=== PATIENT | male | born 1960 | race Caucasian/White ===

== ENCOUNTER 2023-10-10 08:24 | Outpatient (AMB) | payer MEDICARE, OTHER, SELFPAY ==
--- NOTE | 2023-10-10 08:30 | MHC.OFFWIV ---
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 Intake Note: pt is here for hearing aid piece stuck in ear Allergies phenytoin [From Dilantin] Allergy (Mild, Verified 10/10/23 08:51) Rash Medication List - Last Reconciled 10/10/23 by Presley Acevedo MD amlodipine 5 mg PO DAILY aspirin 81 mg PO DAILY atorvastatin 80 mg PO DAILY calcipotriene-betamethasone 0.005-0.064 % (Enstilar) topical carvedilol 12.5 mg PO BID isosorbide mononitrate ER 30 mg PO DAILY tamsulosin 0.4 mg PO DAILY Do you need a note to return to daycare/school/sports/work: No HPI 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 He is not able to hear from the right ear for the past month. Lost his hearing aid. Went to audiology over the weekend who saw a foreign body and sent him over for removal. Physical Exam Vital Signs: Last Vital Signs Temp 97.8 F 10/10/23 08:31 Pulse 66 10/10/23 08:31 BP 128/72 10/10/23 08:31 Pulse Ox 97 10/10/23 08:31 BMI result Body Mass Index 28.5 HEENT Other: Right ear: black colored object jammed in the ear canal. TM not visualized. Assessment & Plan Assessment & Plan (1) Foreign body in ear: Code(s): T16.9XXA - Foreign body in ear, unspecified ear, initial encounter Plan: Using a probe with a light, the foreign body was removed in its entirety. It was a plastic piece of his hearing aid. Pt tolerated the procedure well. Minimal bleeding Orders: Orders AMB Removal of foreign body Today T16.9XXA - Foreign body in ear, unspecified ear, initial encounter Coding Level of Care Code Est Pt Level 3 (68496) Diagnoses Foreign body in ear T16.9XXA Time Spent (min) 10 Comment 10703 CPT code
[2023-10-10 08:31] VITALS: BP 128/72; PULSE 66; TEMP 36.6; O2SAT 97; BMI 28.5
== END 2023-10-10 09:31 | disposition home or self-care (01) ==
PROVIDERS: Visit Provider Internal Medicine
DX: T16.1XXA Foreign body in right ear, initial encounter (principal)
CPT/HCPCS: 69200; 99213

== ENCOUNTER 2023-11-25 08:38 | Outpatient (AMB) | payer MEDICARE, OTHER, SELFPAY ==
--- NOTE | 2023-11-25 09:14 | AM.OFFWIN_ITS ---
Intake Vital Signs 11/25/23 09:16 Height 5 ft 7 in Weight 182 lb BMI 28.5 BP 122/76 Blood Pressure Location Lt brachial Position Sitting Pulse 80 Pulse Source Pulse Oximeter Temp 97.8 F Temp Source Oral Pulse Oximetry (%) 98 Intake Visit Reasons: EP Sliver ~ finger Intake Note: pt is here for sliver in finger on left ring finger Patient Tobacco Use Status: Former Tobacco user Allergies phenytoin [From Dilantin] Allergy (Mild, Verified 11/25/23 09:16) Rash HPI HPI Comments History of Present Illness Details Patient is a 63-year-old male who says he got a splinter in his left ring finger yesterday while brushing something off of his front porch. He states his friend raymond is made of wood and it was a wooden splinter. He states he was able to remove it immediately and thinks he got the entire piece but he has not sure because it became painful over night and is more painful this morning. He also states it is more red than his other fingers, he did apply 1st aid antibiotic cream. He states his last tetanus was 3 years ago. He is left- handed. [facility] Social History Patient Tobacco Use Status: Former Tobacco user Review of Systems Const All systems reviewed & are unremarkable except as noted in HPI and below Physical Exam Vital Signs: Last Vital Signs Temp 97.8 F 11/25/23 09:16 Pulse 80 11/25/23 09:16 BP 122/76 11/25/23 09:16 Pulse Ox 98 11/25/23 09:16 BMI result Body Mass Index 28.5 Const General: cooperative, healthy appearing, comfortable, no acute distress and well developed Orientation/consciousness: patient oriented x3 Limitations: no limitations Eyes General: appearance normal, both eyes and all related structures Resp Effort & Inspection: normal respiratory effort and able to speak in complete sentences Skin General skin exam: no rashes or lesions noted Neuro General: patient oriented x3 Extrem Left upper extremity: hand Details: neurosensory exam normal, tendon exam normal, normal ROM of fingers, no swelling and laceration (Superficial 0.5 cm laceration, erythema and slight tenderness, no FB noted) 4th digit palmar aspect distal ; no unusual warmth, no abrasions, no ecchymosis and no foreign bodies Assessment & Plan Assessment & Plan (1) Foreign body hand-infection: Code(s): S60.559A - Superficial foreign body of unspecified hand, initial encounter; L08.9 - Local infection of the skin and subcutaneous tissue, unspecified Plan: Difficult to ascertain if there is a foreign body retained because I could not palpate 1 or visualize 1. As he is left-handed, I did not want to cause any structural damage to the finger. We will get an x-ray to rule out foreign body retention, he states his tetanus is up-to-date. I will also send doxycycline for 5 days and told him to follow up with his primary care doctor if it does not improve. Plan see above Orders: Orders XR hand LT min 3V Today L08.9 - Local infection of the skin and subcutaneous tissue, unspecified, S60.559A - Superficial foreign body of unspecified hand, initial encounter Medications: New doxycycline hyclate take with food 100 mg PO BID 10 tabs 0RF Coding Level of Care Code Est Pt Level 4 (71481) Diagnoses Foreign body hand-infection S60.559A; L08.9
[2023-11-25 09:16] VITALS: BP 122/76; PULSE 80; TEMP 36.6; O2SAT 98; BMI 28.5
== END 2023-11-25 10:07 | disposition home or self-care (01) ==
PROVIDERS: Visit Provider Physician Assistant
DX: S60.559A Superficial foreign body of unspecified hand, initial encounter (principal); L08.9 Local infection of the skin and subcutaneous tissue, unspecified
CPT/HCPCS: 99214

== ENCOUNTER 2023-11-25 09:29 | Outpatient (REF) | payer MEDICARE, OTHER, SELFPAY ==
--- NOTE | ~2023-11-25 | XR_ITS ---
EXAMINATION: XR HAND, LEFT CLINICAL INFORMATION: Superficial foreign body. COMPARISON: None available. TECHNIQUE: PA, lateral, and oblique views of the left hand. FINDINGS: Alignment is anatomic. Joint spaces are maintained. No displaced fracture or dislocation. No evidence of retained radiopaque foreign body. No focal radiographic soft tissue swelling. XR/XR hand LT min 3V IMPRESSION: No retained radiopaque foreign body seen.
== END 2023-11-25 09:30 | disposition home or self-care (01) ==
LOC: HO.HMGCX 09:29
PROVIDERS: Visit Provider Physician Assistant
DX: S60.552A Superficial foreign body of left hand, initial encounter (principal); L08.9 Local infection of the skin and subcutaneous tissue, unspecified
CPT/HCPCS: 73130

== ENCOUNTER 2024-08-07 09:04 | Outpatient (AMB) | payer MEDICARE, OTHER, SELFPAY ==
[2024-08-07 09:28] VITALS: BP 110/70; PULSE 64; O2SAT 98
--- NOTE | 2024-08-07 09:28 | AM.OFFWIN_ITS ---
Intake Vital Signs 08/07/24 09:28 Weight 184 lb BP 110/70 Blood Pressure Location Lt brachial Position Sitting Pulse 64 Pulse Source Pulse Oximeter Pulse Oximetry (%) 98 Oxygen Delivery Method Room Air Intake Visit Reasons: EP palate mouth pain & sensitive teeth Intake Note: Patient here because he burn the roof of his mouth on tuesday and seems to have worsened. Patient Tobacco Use Status: Former Tobacco user Allergies phenytoin [From Dilantin] Allergy (Mild, Verified 08/07/24 09:28) Rash Do you need a note to return to daycare/school/sports/work: No HPI HPI Comments History of Present Illness Details History of Present Illness - The patient is a 64-year-old male pres enting with a mucosal burn of the palate. - Four days prior, the patient sustained an oral mucosal burn while eating soup, causing current symptoms. - Symptoms exhibit as a worsening sensit ivity and pain in the upper palate, alongside left-side tooth sensitivity. - Pain intensity is noteworthy, with noc turnal disruptions reported. - The patient denies experiencing any sy stemic symptoms such as fever or heart racing. - The patient has applied warm salt wate r rinses, which offer short-term sympt omatic relief. - Past medical history of significance i ncludes a previous smoking history, although he has not recently smoked. Reflective dietary habits introduced potential irritants. - The patient denies diabetes, which cou ld impact healing. Physical Exam General: Cooperative, healthy appearing, comfortable, no acute distress and well developed Orientation: Patient oriented x3 Limitations: No limitations Head: Normal to inspection Ears: Hearing grossly normal bilaterally Nose: Normal external nose present Mouth: roof of mouth, left side has 1.5cm oval area of light brown, no ulcers, no vesicles, no erythema or white coated areas noted Face and sinus: Normal facial exam Eyes: Appearance normal, both eyes and all related structures Neck: Normal visual inspection and Yes full ROM Respiratory: Normal respiratory effort and able to speak in complete sentences. Skin: No rashes or lesions noted Neuro: Patient oriented x3 Extremities: Normal to inspection [facility] Social History Patient Tobacco Use Status: Former Tobacco user Review of Systems Const All systems reviewed & are unremarkable except as noted in HPI and below Physical Exam Vital Signs: Last Vital Signs Pulse 64 08/07/24 09:28 BP 110/70 08/07/24 09:28 Pulse Ox 98 08/07/24 09:28 Oxygen Delivery Method Room Air 08/07/24 09:28 Assessment & Plan Assessment & Plan (1) Burn of hard palate: Code(s): T28.0XXA - Burn of mouth and pharynx, initial encounter Plan: The patient presents with a mucosal burn of the palate related to hot food consumption. Management includes the use of a Magic Mouthwash, advising administration every six to eight hours for one week or until symptoms resolve. Dietary adjustments focusing on softness and neutrality, avoiding irritating foods, are also recommended. Should symptoms escalate or systemic signs develop, such as fever, reevaluation for potential antibiotic treatment is advised. The patient is recommended to follow up with their primary care provider in one week for reassessment and confirmation of healing. Patient was informed and verbally consented to the use of an ambient scribe for clinic note documentation during this visit. Medications: New Magic Mouthwash Diphen/Lido/Antacid 1:1:1 Lidocaine Viscous 2 % 80mL; diphenhydramine 12.5 mg/5 mL 80mL; aluminum-mag hydrox-simeth [id number]/5mL 80mL 5 mL PO Q6-8H 240 mL 0RF Coding Level of Care Code New Pt Level 3 (93068) Diagnoses Burn of hard palate T28.0XXA
--- OUTSIDE RECORDS SUMMARY | 2024-08-07 10:03 | XMS_ITS | Clinical Summary ---
Author Organization [facility] Address [address] [place] [address] Care Team Providers Care Clinical Services Specialist Name Role Phone Daria Cruz DO Primary Care Pro vider Allergies Active Allergy Reactions Criticality Noted Date Comments Latex 06/09/2022 Other Reaction(s): Rash/Dermatitis Phenytoin Sodium 09/13/2005 Medications aspirin 81 mg EC tablet Take 1 tablet (81 mg total) by mouth 1 (one) time each day. Active atorvastatin (LIPITOR) 80 mg tablet Take 1 tablet (80 mg total) by mouth 1 (one) time each day. 2 Active ranolazine (RANEXA) 1,000 mg 12 hr tablet Take 1 tablet (1,000 mg total) by mouth 2 (two) times a day. 4 Active tamsulosin (FLOMAX) 0.4 mg 24 hr capsule TAKE 1 CAPSULE BY MOUTH EVERY DAY 30 MINUTES AFTER SAME MEAL 2 Active amLODIPine (NORVASC) 5 mg tabletIndicati ons:Atheroscle rotic heart disease of [place] coronary artery with other forms of angina pectoris (CMS/HCC) TAKE 1 TABLET BY MOUTH EVERY DAY 90 tablet 1 5 Active amLODIPine (NORVASC) 5 mg tablet Take 1 tablet (5 mg total) by mouth 1 (one) time each day. 10/08/07/18/19 25 Discontinued Active Problems Problem Noted Date Diagnosed Date Palpitations 09/01/2023 Overview (06/11/2024): Last Assessment & Plan: The patient has been experiencing episodes of palpitations. We will order a Holter monitor to evaluate for any underlying arrhythmias as a cause of her symptoms. Edema 07/30/2022 Overview (06/11/2024): Last Assessment & Plan: The patient has mild bilateral lower extremity edema which he notices has appeared since starting the increase in amlodipine. It improves with elevation. I suspect the amlodipine may be the reason for the swelling. He denies pain in the calves, and his legs are not erythemic. I will update an echocardiogram to reassess his heart function given the swelling. I have advised he try wearing compression stockings and if the swelling worsens to notify me. Chest pain 04/13/2022 Aneurysm of ascending aorta 08/27/2021 Overview (06/11/2024): Last Assessment & Plan: The patient has a history of an ascending aorta dilation. Ascending aorta measured 4.2 cm on the echocardiogram done in July 2022. Will order a follow-up echocardiogram to reevaluate his ascending aorta dilation. Epilepsy 12/23/2020 Overview (06/11/2024): Follows with neurology. Dr. Finch. Benign prostatic hyperplasia with urinary hesita ncy 09/25/2020 Essential hypertension 10/19/2016 Overview (06/11/2024): Last Assessment & Plan: The patient has a history of arterial hypertension. The patient's blood pressure today was noted to be well controlled. We'll continue the current antihypertensive medication regimen. CAD (coronary artery disease) 10/18/2016 Overview (06/11/2024): S/p NSTEMI Last Assessment & Plan: The patient has a history of coronary artery disease. Currently, the patient denies any chest pain at rest or with exertion. The patient continues on secondary preventive therapy for CAD, including: Aspirin, ranolazine, amlodipine, carvedilol, and atorvastatin. Will continue current therapy. Osteoarthritis, hand 09/13/2011 Hyperlipidemia 09/18/2007 Overview (06/11/2024): Last Assessment & Plan: The patient has a history of hyperlipidemia. He is currently on atorvastatin 80 mg orally daily. Will continue his current therapy. Convulsions 08/23/2006 Immunizations Name Administration Dates Next Due Influenza Quadravalent, MDCK , 0.5ml, preservative free (Flucelvax) 6mo and older 02/21/2020 Influenza trivalent, 0.5mL, preservative free (Fluarix; FluLaval; Fluzone) ages 6mo and older (Afluria) 3 years and older 05/02/2017,04/08/2015,03/28/2014,2013 Moderna SARS-CoV-2 COVID-19, mRNA, LNP-S, preservative free 04/15/2021,08/27/2020 Tdap Tetanus diptheria acell ular pertussis (Boostrix; Adacel) 7yo and older 03/28/2014 Zoster recombinant (Shingrix ) 19yo and older 07/08/2020 Surgical History Surgery Date Site/Laterality Comments TONSILLECTOMY PROCEDURE: HISTORICAL TONSILLECTOMY COLONOSCOPY 07/23/2008 PROCEDURE: HISTORICAL COLONOSCOPY; COMMENT: Up to cecum, good preparation, normal colon exam OTHER SURGICAL HISTORY 2016 PROCEDURE: SURGICAL STENT; COMMENT: Cardiac Medical History Medical History Date Comments Other convulsions 08/23/2006 DX:Other convu lsions; COMMENT: last seizure Osteoarthritis, hand 09/13/2011 DX:Osteoart hritis, hand High cholesterol 09/18/2007 DX:High cholest selina CAD (coronary artery disease) 10/18/2016 DX :CAD (coronary artery disease) Family History Medical History Relation Name Comments Lung cancer Maternal Grandfather Relation Name Status Comments Maternal Grandfather Social History Tobacco Use Types Packs/Day Years Used Date Smoking Tobacco: Former Cigarettes Q uit: 03/28/2012 Smokeless Tobacco: Never Alcohol Use Standard Drinks/Week Comments Not Currently 0 (1 standard drink = 0.6 oz pur e alcohol) Sex and Gender Information Value Date Recorded Sex Assigned at Not on file Legal Sex Male 9:11 AM EST Gender Identity Not on file Sexual Orientation Not on file Obstetrics History Last Filed Vital Signs Vital Sign Reading Time Taken Comments Blood Pressure 120/70 11/17/2023 10:45 AM EDT Si tting L Arm Pulse 69 09/01/2023 8:59 AM EDT Temperature - - Respiratory Rate - - Oxygen Saturation - - Inhaled Oxygen Concentration - - Weight 82.1 kg (181 lb) 11/17/2023 10:45 AM EDT Height 170.2 cm (5' 7 ) 11/17/2023 10:45 AM EDT Body Mass Index 28.35 11/17/2023 10:45 AM EDT Plan of Treatment Upcoming Encounters Date Type Department Care Team (Late st Contact Info) Description 08/17/2024 7:40 AM EDT Office Visit [facility] [address] [place] [address] Tea Romo NP [address] [place] [address] [address] [place] [address] Health Maintenance Due Date Last Done Comments Pneumococcal Vaccine: 50+ Years (1 of 1 - PCV) 01/26/2008 RSV Immunization Patients 60+ Years Old (1 - Risk 60-74 years 1-dose series) 2018 Zoster Vaccines (2 of 2) 09/02/2020 07/08/2020 Abdominal Aortic Aneurysm (AAA) Screen 05/08/2022 Depression Screening 05/08/2022 Lung Cancer Screening (Low Dose CT) 05/08/2022 Medicare Annual Wellness Visit 05/08/2022 Social Influencers of Health Screening 05/08/2022 Hypertension/CHF/CAD Annual BMP Blood Test 09/09/2022 09/09/2021 Falls Risk Assessment 2023 COVID-19 Vaccine ( season) 2024 02/25/2022, 04/15/2021, 08/27/2020 Influenza Vaccine (#1) 2024 0, 05/02/2017, 04/08/2015, Additional history exists Colorectal Cancer Screening: Colonoscopy 09/12/2025 09/12/2020 Cholesterol Screening (Lipid Panel) 08/03/2026 08/03/2021 DTaP,Tdap,and Td Vaccines (3 - Td or Tdap) 07/08/2030 07/08/2020, 03/28/2014 Hepatitis C Screening Completed 12/21/2016 HIB Vaccines Aged Out No longer eligi ble based on patient's age to complete this topic HPV Vaccines Aged Out No longer eligi ble based on patient's age to complete this topic Hepatitis A Vaccines Aged Out No long er eligible based on patient's age to complete this topic Hepatitis B Vaccines Aged Out No long er eligible based on patient's age to complete this topic IPV Vaccines Aged Out No longer eligi ble based on patient's age to complete this topic MMR Vaccines Aged Out No longer eligi ble based on patient's age to complete this topic Meningococcal ACWY Vaccine Aged Out N o longer eligible based on patient's age to complete this topic Meningococcal B Vacine Aged Out No lo nger eligible based on patient's age to complete this topic RSV Immunization Patients Under 20 months Aged Out No longer eligible based on patient's age to complete this topic Varicella Vaccines Aged Out No longer eligible based on patient's age to complete this topic Procedures Procedure Name Priority Date/Time Associated Diagnosis Comments ANNUAL BMP BLOOD TEST Routine 09/09/2021 LIPID PANEL Routine 08/03/2021 COLONOSCOPY Routine 09/12/2020 HEPATITIS C SCREENING Routine 12/21/2016 from Last 3 Months or Most Recently Relevant to Health Maintenance Results * Annual BMP Blood Test (09/09/2021) Pathologist [facility] Annual BMP Blood Test Abstracted Historical Provider HEALTH MAINTENANCE Final Result * Lipid panel (08/03/2021) Pathologist [facility] LDL/HDL Ratio 2 Triglycerides 111 0 - 150 mg/dL Cholesterol 134 0 - 200 mg/dL HDL 57 >=40 mg/dL LDL Cholesterol 55 0 - 100 mg/dL Blood Venous blood specimen / Unknown us Historical Provider LAB BLOOD ORDERABLES Jillian l Result * Colonoscopy (09/12/2020) Colonoscopy No Interpretation , Abstracted Anatomical Region Laterality Modality Other Historical Provider HEALTH MAINTENANCE Final Result * Hepatitis C Screening (12/21/2016) Hepatitis C Screening Abstracted Historical Provider HEALTH MAINTENANCE Final Result from Last 3 Months or Most Recently Relevant to Health Maintenance Insurance MEDICARE [facility] Care Teams Clinical Services Specialist Relationship Specialty Start Date End Date Daria Cruz DO PCP - General 04/13/22
--- OUTSIDE RECORDS SUMMARY | 2024-08-07 10:03 | XMS_ITS | Patient Health Record ---
Author Organization [facility] Address [address] [place] [address] Care Team Providers Care Photographic Editor Name Role Phone Beata Cruz Primary Care Provi romi Unavailable PHIL DELGADO Unavailable [phone] Allergies Allergen (clinical drug ingredient) Drug/Non Drug Allergy documented on EMR Reaction Allergy Type Onset Date Status Latex latex (uncoded) Unknown Allergy Acti ve phenytoin Dilantin hives Drug Allergy Active Reason For Referral No Information Medications Medication SIG (Take, Route, Frequency, Duration) Notes Start Date End Date Status Aspirin 81 MG 1 tablet Orally Once a day Active Omeprazole 20 MG 1 capsule 30 minutes before morning meal Orally Once a day Not-Taking Atorvastatin Calcium 80 MG 1 tablet Orally Once a day Active Stool Softener 100 MG 1 capsule as neede d Orally Once a day Active amLODIPine Besylate 5 MG 1 tablet Orally Once a day Active Ranolazine ER 1000 MG 1 tablet Orally Tw ice a day Active Tamsulosin HCl 0.4 MG 1 capsule Orally O nce a day Active Carvedilol 12.5 MG 1 tablet with food Orally Twice a day Active Problems Problem Type SNOMED Code ICD Code Onset Dates Problem Status W/U Status Risk Notes Problem [id number] Neuritis of right foot (G57.91) Active confirmed Problem [id number] Neuritis of left foot (G57.92) Active confirmed Plan Of Treatment Pending Test Test Name Order Date X ray : Foot, left 3v 06/28/2023 X ray : Foot, right 3v 06/28/2023 Insurance Providers Payer Name Payer Address Payer Phone Subscriber Number Group Number Insured Name Patient Relationship to Insured Coverage Start Date Coverage End Date [employer] of [place] [address] [place] [phone] [id number] Gerry Galan Self - patient is the insured [facility] [address] [place] [address] [id number] Gerry Galan Self - patient is the insured Medical (General) History Medical History History ICD Code seasonal allergies OA hyperlipidemia history of NH with stent placement- Dr. Balbuena hypertension history of pneumonia psoriasis history of seizures psoriasiform dermatitis pain in right foot pain in left foot coronary artery disease high cholesterol benign prostatic hyperplasia with lower urinary tract symptoms elevated liver function test chronic kidney disease + COVID 2023 COVID vaccinated Surgical History Surgery Date(Month/Year) cardiac stent- [facility] [place] Hospitalization History Reason Date(Month/Year) cardiac stent 2017
--- OUTSIDE RECORDS SUMMARY | 2024-08-07 10:03 | XMS_ITS ---
Author Organization [facility] Address [address] [place] [address] Care Team Providers Care Knife Sharpener Name Role Phone SharmaineBeata Joyner Primary Care Provi romi Unavailable TEA HALE Unavailable [phone] Allergies Allergen (clinical drug ingredient) Drug/Non Drug Allergy documented on EMR Reaction Allergy Type Onset Date Status Latex latex (uncoded) Unknown Allergy Acti ve phenytoin Dilantin hives Drug Allergy Active REASON FOR VISIT Pcp referral for b/l foot pain worsening at night Medications Medication SIG (Take, Route, Frequency, Duration) [...] Problem Status W/U Status Risk Notes Problem [id number] Neuritis of left foot (G57.92) Active confirmed Problem [id number] Neuritis of right foot (G57.91) Active confirmed Vital Signs Temperature 97.3 degrees Fahrenheit 06/28/19 24 Heart Rate 65 /min 06/28/2023 Respiratory Rate 16 /min 06/28/2023 Height 5ft 7in in 06/28/2023 Weight 181.6 lbs 06/28/2023 BMI 28.44 kg/m2 06/28/2023 Encounters Encounter Location Date Provider Diagnosis [facility] [address] [place] [address] 06/28/2023 TEA HALE Lumbar radiculopathy, chronic M54.16 ; Neuritis of left foot G57.92 ; Neuritis of right foot G57.91 ; Pain in right foot M79.671 and Pain in left foot M79.672 Assessments Encounter Date Diagnosis (ICD Code) Assessment Notes Treatment Notes Treatment Clinical Notes Section Notes 06/28/2023 Lumbar radiculopathy, chronic (ICD-10 - M54.16) This is an outpatient visit for evaluation and management of a new patient, which required appropriate review of pertinent medical history, review of any previous imaging, review of all previous records, and examination and decision-making. Time was 45 minutes spent in review of all these facets including face to face discussion with the patient regarding my findings and in discussion of a current and future treatment plan. I reviewed with the patient that the pain he is describing is a nerve related pain. We discussed nerve pain typically manifests at night, without cause and leave quickly. I discussed this could be a neuropathy or a nerve compression from his back. We discussed testing to determine the underlying cause would be a nerve conduction study, EMG/NCV. We discussed this would tell us the location of the nerve related issue or if there is more of a systemic cause. He would like to wait on this testing until the symptoms worsen. We discussed his psoriasis and the changes I saw on his imaging that correlates with psoriatic arthritis. I discussed proper shoes, avoiding barefoot walking, and support in his shoes. We discussed symptomatic treatment for nerve related pain. He is already using a lidocaine cream. We discussed lidocaine patches, lidocaine cream, and supplements that can help with his nerves. Patient will contact the office if his symptoms worsen and I will order an EMG/NCV. 06/28/2023 Neuritis of left foot (ICD-10 - G57.92) 06/28/2023 Neuritis of right foot (ICD-10 - G57.91) 06/28/2023 Pain in right foot (ICD-10 - M79.671) 06/28/2023 Pain in left foot (ICD-10 - M79.672) Plan Of Treatment Treatment Notes Assessment Notes Lumbar radiculopathy, chronic This is an outpatient visit for evaluation and management of a new patient, which required appropriate review of pertinent medical history, review of any previous imaging, review of all previous records, and examination and decision-making. Time was 45 minutes spent in review of all these facets including face to face discussion with the patient regarding my findings and in discussion of a current and future treatment plan. I reviewed with the patient that the pain he is describing is a nerve related pain. We discussed nerve pain typically manifests at night, without cause and leave quickly. I discussed this could be a neuropathy or a nerve compression from his back. We discussed testing to determine the underlying cause would be a nerve conduction study, EMG/NCV. We discussed this would tell us the location of the nerve related issue or if there is more of a systemic cause. He would like to wait on this testing until the symptoms worsen. We discussed his psoriasis and the changes I saw on his imaging that correlates with psoriatic arthritis. I discussed proper shoes, avoiding barefoot walking, and support in his shoes. We discussed symptomatic treatment for nerve related pain. He is already using a lidocaine cream. We discussed lidocaine patches, lidocaine cream, and supplements that can help with his nerves. Patient will contact the office if his symptoms worsen and I will order an EMG/NCV. Pending Test Test Name Order Date X ray : Foot, left 3v 06/28/2023 X ray : Foot, right 3v 06/28/2023 Next Appt Details Follow Up: prn, Reason: Progress Notes * JOHN Gerry JDOB:1959 (63 yo M)Acc No.[id number]:06/28/2023 Progress Notes Patient:?Gerry LOPEZ Chantal Provider:Radha Hale DPM :1960???Age:63 Y???Sex:Male Kevin e:06/28/2023 Phone: Address:[address] [place] [id number] Pcp:Beata Cartagena acco Subjective: * Chief Complaints: * ???Pcp referral for b/l foot pain worsening at night * HPI: ???Constitutional:? This 63 y/o male presents to my office with a complaint of bilateral foot pain at night, left worse than right. He denies any recent injury or trauma to the feet. He had two big toe fractures on his left foot years ago. He describes the pain as a deep aching pain that start along the inside of his foot and ankle and radiates to the top of the foot. He states this pain only happens when he is sitting or lying down, especially at night. The pain does not occur every day, about 2-3 times a week. He states the pain usually lasts for about 10-15 minutes and then resolves. He states he is able to fall back asleep once the pain subsides. He has been using a lidocaine cream recently which does seem to help at night. He does have some lower back pain. He denies any pain radiating up his legs. He avoids barefoot walking, and changes his shoes every 6 months. He has a remote history of psoriasis but states he does not get rashes, mainly eczema related dry skin. He has no other foot complaints this visit. Allergies and medical history reviewed. * ROS:?GENERAL: Pt denies nausea, fever, vomiting, chills, or shortness of breath. Pt in NAD. ALLERGY: patient denies any new allergy HEME/ONC: patient denies any bleeding or clotting disorders CARDIOLOGY: pt denies chest pain, palpitations LUNGS: pt denies shortness of breath ABDOMEN: patient denies any bloating, abdominal pain, or swelling MUSCULOSKELETAL: See HPI, he has joint pain and back pain SKIN: see HPI, otherwise no lesions, rash or itching NEURO: No persistent headache, weakness or numbness PSYCH: patient denies any current anxiety or depression The remainder of the review of systems is noncontributory. * Medical History:? * Surgical History:?cardiac st ent- [facility] 2017 * Hospitalization/Major Diagno stic Procedure:?cardiac stent 2017 * Family History:?Father: dece ased 42 yrs, heart disease.?Mother: 75 yrs, pancreatic tumor, cancer, diabetes.?Siblings: Sibling # 1: sister- ovarian cancertwo siblings .?3 brother(s) , 1 sister(s) . 1 son(s) . .? * Social History:?Tobacco: former smoker Alcohol: no. * Medications:?TakingAspirin 8 1 MG Tablet Chewable 1 tablet Orally Once a day Stool Softener 100 MG Capsule 1 capsule as needed Orally Once a day amLODIPine Besylate 5 MG Tablet 1 tablet Orally Once a day Atorvastatin Calcium 80 MG Tablet 1 tablet Orally Once a day Tamsulosin HCl 0.4 MG Capsule 1 capsule Orally Once a day Carvedilol 12.5 MG Tablet 1 tablet with food Orally Twice a day Ranolazine ER 1000 MG Tablet Extended Release 12 Hour 1 tablet Orally Twice a day Taking Aspirin 81 MG Tablet Chewable 1 tablet Orally Once a day Taking Stool Softener 100 MG Capsule 1 capsule as needed Orally Once a day Taking amLODIPine Besylate 5 MG Tablet 1 tablet Orally Once a day Taking Atorvastatin Calcium 80 MG Tablet 1 tablet Orally Once a day Taking Tamsulosin HCl 0.4 MG Capsule 1 capsule Orally Once a day Taking Carvedilol 12.5 MG Tablet 1 tablet with food Orally Twice a day Taking Ranolazine ER 1000 MG Tablet Extended Release 12 Hour 1 tablet Orally Twice a day Not-TakingOmeprazole 20 MG Capsule Delayed Release 1 capsule 30 minutes before morning meal Orally Once a day Medication List reviewed and reconciled with the patientNot-Taking Omeprazole 20 MG Capsule Delayed Release 1 capsule 30 minutes before morning meal Orally Once a day Medication List reviewed and reconciled with the patient * Allergies:?Dilantin: alexy rogers[Allergies Verified] Objective: * Vitals:?Wt:181.6lbs, Ht: 5ft 7in, BMI:28.44Index, HR:65/min, Temp:97.3F, RR:16/min, Ht-cm: 170.18, Wt-k.37 kg. * Examination: ???General Examination: ???GENERAL: Patient appears well nourished, with NAD. ?VASCULAR: Dorsalis pedis pulses are 2/4 bilaterally and Posterior tibial pulses are 2/4 bilaterally. Capillary filling time within normal limits the digits. Denies rest pain or claudication pain. Each foot temperature is within normal limits. ?NEUROLOGICAL: Sharp/dull sensation intact bilaterally, protective sensation intact 10/10 with 5.07 Mode Ishmael bilaterally, vibratory sensation with tuning fork diminished to the tibial tuberosity bilaterally, left worse than right, position sense intact bilaterally to the tibial tuberosity. ?ORTHOPEDIC: Good muscle strength 4+/5 of all flexors and extensors. Dorsi flexion of ankle ,0 degrees, plantar flexion WNL. No muscle atrophy. Tenderness on palpation of the plantar arch bilaterally. ?DERMATOLOGICAL: No masses, openings, or skin lesions noted. Normal skin temperature, normal skin turgor. ?BIOMECHANICS: STJ ROM WNL, MTJ ROM limited, 1st MPJ ROM limited. On weight bearing, hallux limitus/rigidus bilaterally. ?SHOES: sneakers. Therapeutic Interventions: Assessment: * Assessment: 1.?Lumbar radiculopathy, chr onic - M54.16 (Primary)?2.?Neuritis of left foot - G57.92?3.?Neuritis of right foot - G57.91?4.?Pain in right foot - M79.671?5.?Pain in left foot - M79.672? Plan: * Treatment: 2.?Pain in right foot?Imaging: X ray : Foot, right 3v 3.?Pain in left foot?Imaging: X ray : Foot, left 3v* LEFT FOOT WEIGHT BEARING X-R AYS 3 VIEWS obtained during today's visit. Periosteal thickening of the proximal phalanges consistent with possible psoriatic arthritis. Joint space narrowing and flattening of the 1st metatarsophalangeal joint consistent with degenerative changes. Thickening of the 2nd and 3rd metatarsal shafts. Accessory sesamoid noted medial to the 5th metatarsal head. Increased metatarsus adductus angle on the AP view. On the oblique view an os naviculare noted. A dorsal exostosis is noted in the base of the proximal phalanx of the hallux. Os peroneum noted on the lateral view plantar to the cuboid. Degenerative of the dorsal navicular cuneiform joints. No fracture noted. * Procedure Codes:?95638 X-RAY EXAM OF FOOT 3 Views, Modifiers: [place] 49337 X-RAY EXAM OF FOOT 3 Views, Modifiers: RT * Follow Up:?prn * Billing Information: * Visit Code:? 50845 Office Visit, New Pt., Level 3. * Procedure Codes:? 33516 X-RAY EXAM OF FOOT 3 Views. Modifiers: [place] 22464 X-RAY EXAM OF FOOT 3 Views. Modifiers: RT * Sign off status: Completed true * Provider:?Tea Hale DPM Date:? 06/28/2023 Generated for Ame astudillo/Maryellen/Nadia on:?08/07/2024 10:02 AM EDT History and Physical Notes * HPI (History of Present Illness) Category Sub-Category Detail Notes Category Not es Constitutional This 63 y/o m isis presents to my office with a complaint of bilateral foot pain at night, left worse than right. He denies any recent injury or trauma to the feet. He had two big toe fractures on his left foot years ago. He describes the pain as a deep aching pain that start along the inside of his foot and ankle and radiates to the top of the foot. He states this pain only happens when he is sitting or lying down, especially at night. The pain does not occur every day, about 2-3 times a week. He states the pain usually lasts for about 10-15 minutes and then resolves. He states he is able to fall back asleep once the pain subsides. He has been using a lidocaine cream recently which does seem to help at night. He does have some lower back pain. He denies any pain radiating up his legs. He avoids barefoot walking, and changes his shoes every 6 months. He has a remote history of psoriasis but states he does not get rashes, mainly eczema related dry skin. He has no other foot complaints this visit. Allergies and medical history reviewed. Examination Category Sub-Category Detail Notes Category Not es General Examination GENERAL: Patient appears well nourished, with NAD. VASCULAR: Dorsalis pedis pulses are 2/4 bilaterally and Posterior tibial pulses are 2/4 bilaterally. Capillary filling time within normal limits the digits. Denies rest pain or claudication pain. Each foot temperature is within normal limits. NEUROLOGICAL: Sharp/dull sensation intact bilaterally, protective sensation intact 10/10 with 5.07 Mode Ishmael bilaterally, vibratory sensation with tuning fork diminished to the tibial tuberosity bilaterally, left worse than right, position sense intact bilaterally to the tibial tuberosity. ORTHOPEDIC: Good muscle strength 4+/5 of all flexors and extensors. Dorsi flexion of ankle ,0 degrees, plantar flexion WNL. No muscle atrophy. Tenderness on palpation of the plantar arch bilaterally. DERMATOLOGICAL: No masses, openings, or skin lesions noted. Normal skin temperature, normal skin turgor. BIOMECHANICS: STJ ROM WNL, MTJ ROM limited, 1st MPJ ROM limited. On weight bearing, hallux limitus/rigidus bilaterally. SHOES: sneakers
== END 2024-08-07 10:01 | disposition home or self-care (01) ==
PROVIDERS: Visit Provider Physician Assistant
DX: T28.0XXA Burn of mouth and pharynx, initial encounter (principal)

== ENCOUNTER → 2024-08-07 09:04 | Outpatient (BNVA) | payer MEDICARE, OTHER, SELFPAY | PROVIDERS: Visit Provider Physician Assistant | DX: T28.0XXA Burn of mouth and pharynx, initial encounter (principal) | CPT/HCPCS: 99202 ==

== ENCOUNTER 2024-10-25 09:51 | Outpatient (AMB) | payer MEDICARE, OTHER, SELFPAY ==
[2024-10-25 09:52] VITALS: BP 118/70; PULSE 76; TEMP 36.5; O2SAT 97; BMI 28.8
--- NOTE | 2024-10-25 09:52 | AM.OFFWIN_ITS ---
Intake Vital Signs 10/25/24 09:52 Height 5 ft 7 in Weight 184 lb BMI 28.8 BP 118/70 Blood Pressure Location Lt brachial Position Sitting Pulse 76 Pulse Source Pulse Oximeter Temp 97.7 F Temp Source Oral Pulse Oximetry (%) 97 Oxygen Delivery Method Room Air Intake Visit Reasons: EP ?allergic reaction Patient Tobacco Use Status: Former Tobacco user Allergies phenytoin [From Dilantin] Allergy (Mild, Verified 10/25/24 09:52) Rash Do you need a note to return to daycare/school/sports/work: No HPI HPI Comments History of Present Illness Details 64 yo male who presents today at the for itching. He states that he has been having itching on the bottom of his feet. He states that he has been having some white flaking on the bottom of the feet. He states that he also noticed some welts on the buttock which began a few days later. He states that he had some welts on his buttocks and some on his back. He states that had put some cream on the areas and the welts resolved. He still is itchy on the bottom of his feet and it comes and goes. He states he only has itching on the feet. He has no joint pain. He denies new foods, lotions, soaps, detergents, clothes, bug bites, pets, or travel. [facility] Social History Patient Tobacco Use Status: Former Tobacco user Review of Systems Const Denies chills and Denies fever(s) Card Denies chest pain and Denies dyspnea Resp Denies dyspnea Skin/Breast Reports rash Aller/Immun Denies urticaria Physical Exam Vital Signs: Last Vital Signs Temp 97.7 F 10/25/24 09:52 Pulse 76 10/25/24 09:52 BP 118/70 10/25/24 09:52 Pulse Ox 97 10/25/24 09:52 Oxygen Delivery Method Room Air 10/25/24 09:52 BMI result Body Mass Index 28.8 Resp Effort & Inspection: normal respiratory effort Auscultation: clear to auscultation bilaterally Cardio Rate: regular rate Rhythm: regular rhythm Skin Lesions: no lesions Rashes: rashes noted (Dry flaking skin with some erythema, non-tender) Assessment & Plan Assessment & Plan (1) Allergic reaction: Code(s): T78.40XA - Allergy, unspecified, initial encounter Plan Most likely allergic reaction vs dermatitis vs fungal plan- -prednisone burst for 5 days -hydrocortisone cream BID to the area for 14 days -cetirizine 10 mg once a day for 7 days -f/u with PCP Medications: New hydrocortisone 2.5% 1 appl topical BID PRN 30 grams 0RF Skin Irritation prednisone 40 mg (2 x 20 mg) PO QAM 10 tabs 0RF cetirizine 10 mg PO DAILY PRN 14 tabs 0RF allergy symptoms Coding Level of Care Code New Pt Level 3 (87986) Diagnoses Allergic reaction T78.40XA
== END 2024-10-25 10:54 | disposition home or self-care (01) ==
PROVIDERS: Visit Provider Physician Assistant Medical
DX: T78.40XA Allergy, unspecified, initial encounter (principal)

== ENCOUNTER → 2024-10-25 09:51 | Outpatient (BNVA) | payer MEDICARE, OTHER, SELFPAY | PROVIDERS: Visit Provider Physician Assistant Medical | DX: T78.40XA Allergy, unspecified, initial encounter (principal) | CPT/HCPCS: 99212 ==

== ENCOUNTER 2025-02-13 08:09 | Outpatient (AMB) | payer MEDICARE, OTHER, SELFPAY ==
--- OUTSIDE RECORDS SUMMARY | 2024-07-02 05:30 | XMS_ITS ---
Author Organization [facility] Address [address], [place] [phone] Care Team Providers Care Geophysical Laboratory Director Name Role Phone JANNETTEDIRK BREEN Primary Care Provide r [phone] ALLERGIES Allergen (clinical drug ingredient) Drug/Non Drug [...] Encounters Encounter Location Date Provider Diagnosis [facility] [address] [place] [address] 07/02/2024 DIRK JUANITA Medicare annual wellness visit, [...] Reason: Provider Name:HERVE Manuel, 07/04/2025 10:30:00 AM, [address] [place] [address], [phone], Provider Name:DIRK TOLBERT, 07/04/2025 11:00:00 AM, [address] [place] [address], [phone], History and Physical Notes * HPI (History [...]
--- OUTSIDE RECORDS SUMMARY | 2024-07-02 05:51 | XMS_ITS ---
Author Organization [facility] Address [address] [place] [phone] Care Team Providers Care Straddle Bug Operator Name Role Phone DIRK GRANT Primary Care Provide r [phone] REASON FOR VISIT Update [employer]ios[employer] Demographics SOCIAL HISTORY Sex Assigned At : Social History Observation Description Sex Assigned At Male Encounters Encounter Location Date Provider Diagnosis [address] [address] 07/02/2024 DIRK GRANT PLAN OF TREATMENT Next Appt Details Provider Name:HERVE Manuel, 07/04/2025 10:30:00 AM, [address] [place] [address], [phone], Provider Name:DIRK TOLBERT, 07/04/2025 11:00:00 AM, [address] [place] [address], [phone],
--- OUTSIDE RECORDS SUMMARY | 2024-07-02 06:00 | XMS_ITS ---
Author Organization [facility] Address [address], [place] [id number] Care Team Providers Care Emergency Services Dispatcher Name Role Phone MADELINELAKESHIA ALVARADOLA Primary Care Provide r [phone] ALLERGIES Allergen (clinical drug ingredient) Drug/Non Drug [...] 07/02/2024 Encounters Encounter Location Date Provider Diagnosis [facility] [address] [place] [address] 07/02/2024 DIRK GRANT Chronic kidney disease, unspecified CKD stage N18.9 ; Primary hypertension I10 ; Benign prostatic hyperplasia with lower urinary tract symptoms, symptom details unspecified N40.1 ; High cholesterol E78.00 ; Coronary artery disease involving [place] coronary artery of [place] heart, unspecified whether angina present I25.10 and [...] healthy diet. 07/02/2024 Coronary artery disease involving [place] coronary artery of [place] heart, unspecified whether angina present (ICD-10 - [...] healthy diet. Coronary artery disease invo lving [place] coronary artery of [place] heart, unspecified whether angina present Continue treatment regimen and follow-up with cardiology as planned IFG (impaired fasting glucose) Minimally elevated fasting glucose we will continue to monitor this and A1c. Next Appt Details Follow Up: 6-7 mo w/ labs, R joy: Provider Name:HERVE BO Mar, 07/04/2025 10:30:00 AM, [address] [place], [address], Provider Name:DIRK TOLBERT, 07/04/2025 11:00:00 AM, [address] [place], [address], Progress Notes * Examination Category Sub-Category Detail [...] -has h/o psoriasis had seen derm in [place] (office closed) will be seeing saraidoug derm for psoriasis prn -h/o seizures, recent EEG normal , neuro in [facility], meds stopped over 1 yr ago [...]
--- OUTSIDE RECORDS SUMMARY | 2025-01-03 06:00 | XMS_ITS ---
Author Organization [facility] Address [facility] [place], [place] [id number] Care Team Providers Care Senior Information Developer Name Role Phone MADELINELAKESHIA ALVARADOLA Primary Care Provide r [phone] ALLERGIES Allergen (clinical drug ingredient) Drug/Non Drug [...] ascending aorta without rupture (I71.21) Active confirmed [id number] VITAL SIGNS Height 67 in 01/03/2025 Weight 179 lbs 01/03/2025 Blood pressure systolic 124 mm Hg 01/04/20 25 Blood pressure diastolic 76 mm Hg 025 BMI 28.03 kg/m2 01/03/2025 Encounters Encounter Location Date Provider Diagnosis [facility] [address] [place] [address] 01/03/2025 DIRK GRANT Primary hypertension I10 ; Chronic kidney disease, unspecified CKD stage N18.9 ; High cholesterol E78.00 ; Coronary artery disease involving [place] coronary artery of [place] heart, unspecified whether angina present I25.10 ; [...] healthy diet 01/03/2025 Coronary artery disease involving [place] coronary artery of [place] heart, unspecified whether angina present (ICD-10 - [...] healthy diet Coronary artery disease invo lving [place] coronary artery of [place] heart, unspecified whether angina present cont meds [...] Test Test Name Order Date Urinalysis, Complete [id number]/[id number] 025 Hepatic Function Panel [id number] 2024 LP+Non-HDL Cholesterol-[id number] 01/04/2025 BMP8+eGFR-975818 01/04/2025 Next Appt Details Follow Up: 6 Months, Reason: Provider Name:HERVE Manuel, 07/04/2025 10:30:00 AM, [address] [place] [address], [phone], Provider Name:DIRK TOLBERT, 07/04/2025 11:00:00 AM, [address] [place] [address], [phone], Progress Notes * Examination Category Sub-Category Detail [...] -has h/o psoriasis had seen derm in [place] (office closed) will be seeing wer[facility] derm for psoriasis prn -h/o seizures, [facility] normal [facility], meds stopped over 1 yr [...]
--- OUTSIDE RECORDS SUMMARY | 2025-01-03 06:23 | XMS_ITS ---
Author Organization [facility] Address [address] [place] [phone] Care Team Providers Care Japanese Professor Name Role Phone DIRK GRANT Primary Care Provide r [phone] REASON FOR VISIT fax labs SOCIAL HISTORY Sex Assigned At : Social History Observation Description Sex Assigned At Male Encounters Encounter Location Date Provider Diagnosis [address] [address] 01/03/2025 DIRK GRANT PLAN OF TREATMENT Next Appt Details Provider Name:HERVE Manuel, 07/04/2025 10:30:00 AM, [address] [place] [address], [phone], Provider Name:DIRK TOLBERT, 07/04/2025 11:00:00 AM, [address] [place] [address], [phone],
--- NOTE | 2025-02-13 08:17 | AM.OFFWIN_ITS ---
Intake Vital Signs 02/13/25 08:18 Height 5 ft 7 in Weight 177 lb BMI 27.7 BP 110/68 Blood Pressure Location Lt brachial Position Sitting Respiration 16 Pulse 64 Pulse Source Pulse Oximeter Temp 97.7 F Temp Source Oral Pulse Oximetry (%) 97 Oxygen Delivery Method Room Air Intake Visit Reasons: EP thrush?? Patient Tobacco Use Status: Former Tobacco user Allergies phenytoin (From Dilantin) Allergy (Mild, Verified 02/13/25 08:21) Rash HPI HPI Comments History of Present Illness Details History of Present Illness - The patient is a 65-year-old male pres enting with infection in his mouth. - Reports swelling across the tongue and a sensation similar to biting the side of the mouth. - Similar episode occurred a few years a go, resolved with antibiotic mouthwash. - Denies smoking, inhaler use, diabetes, sore throat, cough, fever, chills, chest pain, or shortness of breath. - Breathes through mouth at night, does not use CPAP machine. - Experiences bad taste in mouth, previo usly alleviated by treatment. - He has not tried anything for his symp toms. - He has had this in the past. Physical Exam General: Cooperative, healthy appearing, comfortable, no acute distress and well developed Orientation: Patient oriented x3 Mouth: White coating noted on the tongue. No lesions noted. Uvula is midline, o ropharynx is pink with no exudates noted. Neck: Normal visual inspection and Yes full ROM. No lymphadenopathy noted. Respiratory: Normal respiratory effort and able to speak in complete sentences. Clear to auscultation bilaterally Cardiovascular: Regular rate and rhythm. Normal S1 and S2 Skin: No rashes or lesions noted Patient was informed and verbally consented to the use of an ambient scribe for clinic note documentation during this visit [facility] Social History Patient Tobacco Use Status: Former Tobacco user Review of Systems Const All systems reviewed & are unremarkable except as noted in HPI and below Physical Exam Vital Signs: Last Vital Signs Temp 97.7 F 02/13/25 08:18 Pulse 64 02/13/25 08:18 Resp 16 02/13/25 08:18 BP 110/68 02/13/25 08:18 Pulse Ox 97 02/13/25 08:18 Oxygen Delivery Method Room Air 02/13/25 08:18 BMI result Body Mass Index 27.7 Assessment & Plan Assessment & Plan (1) Thrush: Code(s): B37.0 - Candidal stomatitis Plan Most likely thrush plan - Nystatin swish and swallow mouthwash for seven days. - Recommend salt water gargles as an adjunctive treatment. - Advise follow-up if symptoms do not resolve after treatment. Medications: New nystatin administer 1/2 of dose in each side of the mouth 5 mL buccal qid 140 mL 0RF 7 days Coding Level of Care Code Est Pt Level 3 (40136) Diagnoses Thrush B37.0
[2025-02-13 08:18] VITALS: BP 110/68; PULSE 64; RESP 16; TEMP 36.5; O2SAT 97; BMI 27.7
--- OUTSIDE RECORDS SUMMARY | 2025-02-13 09:01 | XMS_ITS | Patient Health Record ---
Author Organization [facility] Address [address] [facility] [address] [place] [address] Care Team Providers Care Precinct I Police Sergeant Name Role Phone Beata Cruz Primary Care Provi romi Unavailable PHIL DELGADO Unavailable [phone] Allergies Allergen (clinical drug ingredient) Drug/Non Drug [...] Problem Status W/U Status Risk Notes Problem Mononeuropathy of lower limb (514100279) Neuritis of right foot (G57.91) Active confirmed Problem Mononeuropathy of lower limb (306890513) Neuritis of left foot (G57.92) Active confirmed Plan Of Treatment Pending Test Test Name Order Date X ray : Foot, left 3v 06/28/2023 X ray : Foot, right 3v 06/28/2023 Insurance Providers Payer Name Payer Address Payer Phone Subscriber Number Group Number Insured Name Patient Relationship to Insured Coverage Start Date Coverage End Date Medicare of [place] [address] SUÁREZ [phone] [id number] Gerry Galan Self - patient is the insured [facility] [address] [address] [facility] [address] [place] [address] [phone] [id number] Gerry Galan Self - patient is the insured Medical (General) History Medical History History ICD Code seasonal allergies OA hyperlipidemia history of [place] with stent placement- Dr. Balbuena hypertension history of pneumonia psoriasis history of seizures psoriasiform dermatitis pain in right foot pain in left foot coronary artery disease high cholesterol benign prostatic hyperplasia with lower urinary tract symptoms elevated liver function test chronic kidney disease + COVID 2023 COVID vaccinated Surgical History Surgery Date(Month/Year) cardiac stent- [facility] 2017 Hospitalization History Reason Date(Month/Year) cardiac stent 2017
--- OUTSIDE RECORDS SUMMARY | 2025-02-13 09:01 | XMS_ITS | Patient Health Record ---
Author Organization [facility] Address [address] [place], [place] [phone] Care Team Providers Care Supervisor Accounts Receivable Name Role Phone DAMIANARIANDIRK RIVERA Primary Care Provide r [phone] ALLERGIES Allergen (clinical drug ingredient) Drug/Non Drug Allergy documented on EMR Reaction Allergy Type Onset Date Status phenytoin Dilantin hives Drug Allergy Active REASON FOR REFERRAL No Information MEDICATIONS Medication SIG (Take, Route, Frequency, Duration) Notes Start Date End Date Status Atorvastatin Calcium 80 MG 1 tablet Oral ly nightly for 90 days Active Tamsulosin HCl 0.4 MG TAKE 1 CAPSULE BY MOUTH ONCE DAILY for 90 Active Ranolazine ER 1000 MG 1 tablet [...] Once a day for 30 day(s) Active SOCIAL HISTORY Tobacco Use: Social History Observation [...] Never (0 points) Points 1 Interpretation Negative PROBLEMS Problem Type ICD Code Onset Dates Problem Status W/U Status Risk SNOMED Code Notes Problem Elevated liver function tests (R79.89) Active confirmed 312909720 Problem Anxiety (F41.9) Active confirmed 388673 02 Problem Tubular adenoma of colon (D12.6) Active confirmed 012083245 GI muslu; Problem 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) Active confirmed 67063474 Problem Primary hypertension (I10) Active confirmed 04441380 Problem High cholesterol (E78.00) Active confirmed 82645183 Problem Hearing loss, unspecified hearing loss type, unspecified laterality (H91.90) Active confirmed 00579415 Problem Benign prostatic hyperplasia with lower urinary tract symptoms, symptom details unspecified (N40.1) Active confirmed 401759547 Problem Chronic kidney disease, unspecified CKD stage (N18.9) Active confirmed 567624396 Problem Nonintractable epilepsy without status epilepticus, unspecified epilepsy type (G40.909) Active confirmed 116623048 neuro alexei. Problem Coronary artery disease involving [place] coronary artery of [place] heart, unspecified whether angina present (I25.10) Active confirmed 252146317 Problem Thoracic ascending aortic aneurysm (I71.2) Active confirmed 480766975 Problem Aneurysm of ascending aorta without rupture (I71.21) Active confirmed 763053699 VITAL SIGNS Blood pressure diastolic 76 mm Hg 01/03/2025 Height 67 in 01/03/2025 Blood pressure systolic 124 mm Hg 01/03/2025 Weight 179 lbs 01/03/2025 BMI 28.03 kg/m2 01/03/2025 Encounters Encounter Location Date Provider Diagnosis [facility] [address] [place] [address] 06/11/2024 DIRK GRANT Elevated liver function tests R79.89 ; Chronic kidney disease, unspecified CKD stage N18.9 ; Primary hypertension I10 ; Benign prostatic hyperplasia with lower urinary tract symptoms, symptom details unspecified N40.1 ; High cholesterol E78.00 ; Coronary artery disease involving [place] coronary artery of [place] heart, unspecified whether angina present I25.10 ; Anxiety F41.9 ; Nonintractable epilepsy without status epilepticus, unspecified epilepsy type G40.909 and Prostate cancer screening Z12.5 [place] [address] 07/02/2024 DIRK BHATIALASACCO Medicare annual wellness visit, subsequent Z00.00 [place] [address] 07/02/2024 DIRK [place] [address] 07/02/2024 DIRK BHATIALASACCO Chronic kidney disease, unspecified CKD stage N18.9 ; Primary hypertension I10 ; Benign prostatic hyperplasia with lower urinary tract symptoms, symptom details unspecified N40.1 ; High cholesterol E78.00 ; Coronary artery disease involving [place] coronary artery of [place] heart, unspecified whether angina present I25.10 and IFG (impaired fasting glucose) R73.01 [place] [phone] 01/03/2025 DIRK CHANICOLASACCO Primary hypertension I10 ; Chronic kidney disease, unspecified CKD stage N18.9 ; High cholesterol E78.00 ; Coronary artery disease involving [place] coronary artery of [place] heart, unspecified whether angina present I25.10 ; Aneurysm of ascending aorta without rupture I71.21 ; Benign prostatic hyperplasia with lower urinary tract symptoms, symptom details unspecified N40.1 and History of tobacco use Z87.891 [place] [phone] 01/03/2025 DIRK CHANICOLASACCO ASSESSMENTS Encounter Date Diagnosis Assessment Notes Treatment Notes Treatment Clinical Notes Section Notes 01/03/2025 Primary hypertension (ICD-10 - I10) tolerating current regimen well and will cont 06/11/2024 Elevated liver function tests (ICD-10 - R79.89) 07/02/2024 Chronic kidney disease, unspecified CKD stage (ICD-10 - N18.9) Have been stable we will continue to monitor 01/03/2025 Chronic kidney disease, unspecified CKD stage (ICD-10 - N18.9) stable and will cont to monitor 06/11/2024 Chronic kidney disease, unspecified CKD stage (ICD-10 - N18.9) 07/02/2024 Primary hypertension (ICD-10 - I10) Tolerating current regimen we will continue this and low-sodium diet. 07/02/2024 Medicare annual wellness visit, subsequent (ICD-10 - Z00.00) AWV reviewed with pt 01/03/2025 High cholesterol (ICD-10 - E78.00) cont current dose of statin and heart healthy diet 06/11/2024 Primary hypertension (ICD-10 - I10) 07/02/2024 Benign prostatic hyperplasia with lower urinary tract symptoms, symptom details unspecified (ICD-10 - N40.1) Doing very well with regimen as per HPI and will continue. 01/03/2025 Coronary artery disease involving [place] coronary artery of [place] heart, unspecified whether angina present (ICD-10 - I25.10) cont meds and fu w/ cards as planned 06/11/2024 Benign prostatic hyperplasia with lower urinary tract symptoms, symptom details unspecified (ICD-10 - N40.1) 07/02/2024 High cholesterol (ICD-10 - E78.00) Lipid panel is good on current dosing we will continue this and heart healthy diet. 01/03/2025 Aneurysm of ascending aorta without rupture (ICD-10 - I71.21) stable, has annual imaging w/ cards 06/11/2024 High cholesterol (ICD-10 - E78.00) 07/02/2024 Coronary artery disease involving [place] coronary artery of [place] heart, unspecified whether angina present (ICD-10 - I25.10) Continue treatment regimen and follow-up with cardiology as planned 01/03/2025 Benign prostatic hyperplasia with lower urinary tract symptoms, symptom details unspecified (ICD-10 - N40.1) had annual fu w/ uro earlier this year, doing well on current regimen w/o any concerns 06/11/2024 Coronary artery disease involving [place] coronary artery of [place] heart, unspecified whether angina present (ICD-10 - I25.10) 07/02/2024 IFG (impaired fasting glucose) (ICD-10 - R73.01) Minimally elevated fasting glucose we will continue to monitor this and A1c. 06/11/2024 Anxiety (ICD-10 - F41.9) 01/03/2025 History of tobacco use (ICD-10 - Z87.891) quit about 12 yrs started age 14 yo 1.5 ppd x 40 yrs have orderd LDCT and screening for AAA 06/11/2024 Nonintractable epilepsy without status epilepticus, unspecified epilepsy type (ICD-10 - G40.909) 06/11/2024 Prostate cancer screening (ICD-10 - Z12.5) 01/03/2025 Other had shingles vac x 2, prevnar 20, flu vac, tdap, PLAN OF TREATMENT Pending Test Test Name Order Date XR Finger(s) Left 2-3 views 12/21/2023 Future Test Test Name Order Date XR Hand Right 2 views 02/15/2022 LIPID PROFILE 06/24/2022 TSH 07/01/2022 CBC W/ AUTOMATED DIFF 07/01/2022 HEPATIC FUNCTION PANEL 07/01/2022 BASIC METABOLIC PANEL 07/01/2022 BASIC METABOLIC PANEL 12/24/2022 HEPATIC FUNCTION PANEL 12/24/2022 BASIC METABOLIC PANEL 07/21/2023 MICROALBUMIN URINE 07/21/2023 URINALYSIS MICROSCOPIC 07/21/2023 Urinalysis, Complete w/ME-[id number] 025 Hepatic Function Panel [id number] LP+Non-HDL Cholesterol-[id number] 01/04/2025 BMP8+eGFR-[id number] 01/04/2025 Next Appt Details Provider Name:HERVE Manuel, 07/04/2025 10:30:00 AM, [address] [place], [phone], Provider Name:DIRK TOLBERT, 07/04/2025 11:00:00 AM, [address] [place], [phone], Insurance Providers Payer Name Payer Address Payer Phone Subscriber Number Group Number Insured Name Patient Relationship to Insured Coverage Start Date Coverage End Date MEDICARE [employer] [address] [place] [address] [id number] GEORGE LOPEZ Self - patient is the insured 3 [employer] MEDICARE SUPPLEMENT [place] [address] [place] [address] [id number] JOHNGEORGE Self - patient is the insured 1 MEDICAL (GENERAL) HISTORY Medical History History ICD Code Seasonal Allergies OA Hyperlipidemia Hx of [place] w/Stent placement-Dr Balbuena HTN Hx of Pneumonia Psoriasis Hx of Seizures-[facility] covid 15 Feb 2023, August 2023 HP:Wen Kay [phone] Surgical History Surgery Date(Month/Year) Cardiac Stent [facility] 2017
--- OUTSIDE RECORDS SUMMARY | 2025-02-13 09:01 | XMS_ITS | Clinical Summary ---
Author Organization [facility] Address [address] [place] [address] Phone Care Team Providers Care Deicer Finisher Name Role Phone Daria Cruz DO Primary [...] 1 (one) time each day. 2 Active tamsulosin (FLOMAX) 0.4 mg 24 hr capsule TAKE 1 CAPSULE BY MOUTH EVERY DAY 30 MINUTES AFTER SAME MEAL 2 Active amLODIPine (NORVASC) 5 mg tabletIndications :Coronary artery disease, unspecified vessel or lesion type, unspecified whether angina present, unspecified whether mo[place] or transplanted heart Take 1 tablet (5 mg total) by mouth 1 (one) time each day. 90 tablet 1 5 08/18/19 26 Active ranolazine (RANEXA) 1,000 mg 12 hr tablet TAKE 1 TABLET BY MOUTH TWICE A DAY 180 tablet 3 5 Active carvediloL (COREG) 12.5 mg tablet TAKE 1 TABLET BY MOUTH TWICE DAILY WITH MEALS 180 tablet 1 5 Active Active Problems Problem Noted Date Diagnosed Date Edema 07/30/2022 Overview (06/11/2024): Last Assessment & [...] if the swelling worsens to notify me. Aneurysm of ascending aorta ([facility] V24) 2021 Overview (06/11/2024): Last Assessment & Plan: The patient has a history of an ascending aorta dilation. Ascending aorta measured 4.2 cm on the echocardiogram done in July 2022. Will order a follow-up echocardiogram to reevaluate his ascending aorta dilation. Assessment & Plan (08/17/2024 8:24 AM EDT): Patient has a history of ascending aorta dilation. At last echocardiogram October 2023 showed ascending order 4.2 cm in transverse aorta dilation of 3.1 cm. Will obtain new echocardiogram to evaluate for progression. We reviewed the limitations including avoiding lifting anything over 35 pounds in contact sports. Orders: Transthoracic echocardiogram (TTE) complete with PRN contrast, bubble, strain, and 3D order panel; Future perflutren lipid microsphere (DEFINITY) 1.3 mL in sodium chloride 0.9% 8.7 mL injection Epilepsy ([facility] V24, [facility] V28) 12/23/2020 Overview (06/11/2024): Follows with neurology. Dr. Finch. Benign prostatic hyperplasia with urinary hesita ncy 09/25/2020 Essential hypertension 10/19/2016 Overview (06/11/2024): Last Assessment & Plan: The patient has a history of arterial hypertension. The patient's blood pressure today was noted to be well controlled. We'll continue the current antihypertensive medication regimen. Assessment & Plan (08/17/2024 8:24 AM EDT): Patient's blood pressure is well-controlled today with a reading 118/60. He will continue his current antihypertensive medication regimen as prescribed. CAD (coronary artery disease) 10/18/2016 Overview (06/11/2024): S/p NSTEMI Last Assessment & Plan: The patient has a history of coronary artery disease. Currently, the patient denies any chest pain at rest or with exertion. The patient continues on secondary preventive therapy for CAD, including: Aspirin, ranolazine, amlodipine, carvedilol, and atorvastatin. Will continue current therapy. Assessment & Plan (08/17/2024 8:24 AM EDT): Patient has a history of coronary artery disease. Currently he denies any exertional anginal symptoms with his activities. He continues on medical therapy with amlodipine, aspirin, statin, carvedilol and Ranexa as prescribed. No changes to medical therapies. Patient advised to seek emergency medical attention by calling 911 if they were to develop severe dyspnea, chest pain that did not resolve with rest or nitroglycerin, or if they were to faint. Orders: ECG 12 lead Comprehensive metabolic panel; Future amLODIPine (NORVASC) 5 mg tablet; Take 1 tablet (5 mg total) by mouth 1 (one) time each day. Osteoarthritis, hand 09/13/2011 Hyperlipidemia 09/18/2007 Overview (06/11/2024): Last Assessment & Plan: The patient has a history of hyperlipidemia. He is currently on atorvastatin 80 mg orally daily. Will continue his current therapy. Assessment & Plan (08/17/2024 8:24 AM EDT): Patient has a history of hyperlipidemia as well as a history of coronary artery disease. He continues on atorvastatin as prescribed. Will update a new fasting lipid panel to reassess his lipid control and make any adjustments as necessary. I have reviewed with the patient the importance of a heart healthy lifestyle which includes eating a low-fat low-salt diet, getting regular exercise, maintaining a healthy weight, not smoking, and following up with routine medical care. Orders: Lipid panel; Future Resolved Problems Problem Noted Date Diagnosed Date Resolved Date Palpitations 09/01/2023 08/17/2024 Overview (06/11/2024): Last Assessment & Plan: The patient has been experiencing episodes of palpitations. We will order a Holter monitor to evaluate for any underlying arrhythmias as a cause of her symptoms. Chest pain 04/13/2022 08/17/2024 Convulsions ([facility] V24, [facility] V28) 08/23/2006 08/17/2024 Immunizations Name Administration Dates Next Due Influenza [...] Sign Reading Time Taken Comments Blood Pressure 100/70 10/10/2024 10:55 AM EDT Pulse 63 08/17/2024 7:38 AM EDT Temperature - - Respiratory Rate - - Oxygen Saturation 97% 08/17/2024 7:38 AM EDT Inhaled Oxygen Concentration - - Weight 83.5 kg (184 lb) 10/10/2024 10:55 AM EDT Height 170.2 cm (5' 7 ) 10/10/2024 10:55 AM EDT Body Mass Index 28.82 10/10/2024 10:55 AM EDT Plan of Treatment Health Maintenance Due Date Last Done Comments Abdominal Aortic Aneurysm (AAA) Screen 05/08/2022 Lung Cancer Screening (Low Dose CT) 05/08/2022 Medicare Annual Wellness Visit 05/08/2022 Social Influencers of Health Screening 05/08/2022 Hypertension/CHF/CAD Annual BMP Blood Test 09/09/2022 09/09/2021 Falls Risk Assessment 2023 Depression Screening 05/30/2024 COVID-19 Vaccine ( season) 2025 03/09/2024, 02/25/2022, 04/15/2021, Additional history exists Colorectal Cancer Screening: Colonoscopy 09/12/2025 09/12/2020 Cholesterol Screening (Lipid Panel) 08/03/2026 08/03/2021 DTaP,Tdap,and Td Vaccines (4 - Td or Tdap) 07/08/2030 07/08/2020, 03/28/2014, 10/15/2003 Hepatitis C Screening Completed 12/21/2016 Zoster Vaccines Completed 07/08/2020, 04/29/2020 RSV Immunization Adult Patients Completed 04/04/2023 Pneumococcal Vaccine: 50+ Years Completed 06/10/2023 Influenza Vaccine Completed 02/05/2025, , 04/04/2023, Additional history exists HIB Vaccines Aged Out No longer eligi [...] age to complete this topic Meningococcal B Vaccine Aged Out No l onger eligible based on patient's age to complete [...] Results * Annual BMP Blood Test (09/09/2021) [facility] Annual BMP Blood Test Abstracted Historical Provider HEALTH MAINTENANCE Final Result * Lipid panel (08/03/2021) [facility] LDL/HDL Ratio 2 Triglycerides 111 0 - 150 mg/dL Cholesterol 134 0 - 200 mg/dL HDL 57 >=40 mg/dL LDL Cholesterol 55 0 - 100 mg/dL Blood Venous blood specimen / Unknown Historical Provider LAB BLOOD ORDERABLES Jillian l Result * Colonoscopy (09/12/2020) [facility] Colonoscopy No Interpretation , Abstracted Anatomical Region Laterality Modality Other Historical Provider HEALTH MAINTENANCE Final Result * Hepatitis C Screening (12/21/2016) Hepatitis C Screening Abstracted us Historical Provider HEALTH MAINTENANCE Final Result from Last 3 Months or Most Recently Relevant to Health Maintenance Insurance MEDICARE [facility] Care Teams Deicer Finisher Relationship Specialty Start Date End Date Daria Cruz DO [facility] [address] [place] [phone] PCP - General 04/13/22
== END 2025-02-13 09:04 | disposition home or self-care (01) ==
PROVIDERS: Visit Provider Physician Assistant Medical
DX: B37.0 Candidal stomatitis (principal)

== ENCOUNTER → 2025-02-13 08:09 | Outpatient (BNVA) | payer MEDICARE, OTHER, SELFPAY | PROVIDERS: Visit Provider Physician Assistant Medical | DX: B37.0 Candidal stomatitis (principal) | CPT/HCPCS: 99212 ==

== ENCOUNTER 2025-02-15 07:19 | Outpatient (AMB) | payer MEDICARE, OTHER, SELFPAY ==
--- OUTSIDE RECORDS SUMMARY | 2024-07-02 05:30 | XMS_ITS ---
Author Organization [facility] Address [address] [place], [place] [phone] Care Team Providers Care Computer Discovery Teacher Name Role Phone JANNETTEDIRK BREEN Primary Care Provide r [phone] ALLERGIES Allergen (clinical drug ingredient) Drug/Non Drug [...] 07/02/2024 Encounters Encounter Location Date Provider Diagnosis [facility] [address] [place] [address] 07/02/2024 DIRK JUANITA Medicare annual wellness visit, [...] Reason: Provider Name:HERVE Manuel, 07/04/2025 10:30:00 AM, [address] [place] [address], [phone], Provider Name:DIRK TOLBERT, 07/04/2025 11:00:00 AM, [address] [place] [address], [phone], History and Physical Notes * HPI (History [...]
--- OUTSIDE RECORDS SUMMARY | 2024-07-02 05:51 | XMS_ITS ---
Author Organization [facility] Address [address] [place] [phone] Care Team Providers Care Channel Lip Stiffener Insoles Name Role Phone DIRK GRANT Primary Care Provide r [phone] REASON FOR VISIT Update Kiosk Demographics SOCIAL HISTORY Sex Assigned At : Social History Observation Description Sex Assigned At Male Encounters Encounter Location Date Provider Diagnosis [address] [address] 07/02/2024 DIRK GRANT PLAN OF TREATMENT Next Appt Details Provider Name:HERVE Manuel, 07/04/2025 10:30:00 AM, [address] [place] [address], [phone], Provider Name:DIRK TOLBERT, 07/04/2025 11:00:00 AM, [address] [place] [address], [phone],
--- OUTSIDE RECORDS SUMMARY | 2024-07-02 06:00 | XMS_ITS ---
Author Organization [facility] Address [address] [place], [place] [phone] Care Team Providers Care Laminator Name Role Phone MADELINELAKESHIA ALVARADOLA Primary Care Provide r [phone] ALLERGIES Allergen (clinical drug ingredient) Drug/Non Drug Allergy documented on EMR Reaction Allergy Type Onset Date Status phenytoin Dilantin hives Drug Allergy Active REASON FOR VISIT 1 yr follow up (AWV w/nursing 1st)/6-7 month f/u MEDICATIONS Medication SIG (Take, Route, Frequency, Duration) Notes Start Date End Date Status Carvedilol 12.5 MG 1 tablet with food O rally Twice a day Active Stool Softener 100 MG 1 capsule as neede d Orally Once a day for 30 day(s) Active amLODIPine Besylate 5 MG 1 tablet Orally Once a day for 30 day(s) Active Aspirin 81 81 MG 1 tablet Orally Once a day for 30 day(s) Active Atorvastatin Calcium 80 MG 1 tablet Oral ly nightly for 90 days Active Tamsulosin HCl 0.4 MG TAKE 1 CAPSULE BY MOUTH ONCE A DAY FOR 90 DAYS for 90 days Active Ranolazine ER 1000 MG 1 tablet Orally Tw ice a day Active SOCIAL HISTORY Sex Assigned At : Social History Observation Description Sex Assigned At Male VITAL SIGNS Height 67 in 07/02/2024 Weight 188 lbs 07/02/2024 Blood pressure systolic 127 mm Hg 07/02/19 25 Blood pressure diastolic 78 mm Hg 025 BMI 29.44 kg/m2 07/02/2024 Encounters Encounter Location Date Provider Diagnosis [facility] [address] [place] [address] 07/02/2024 DIRK GRANT Chronic kidney disease, unspecified CKD stage N18.9 ; Primary hypertension I10 ; Benign prostatic hyperplasia with lower urinary tract symptoms, symptom details unspecified N40.1 ; High cholesterol E78.00 ; Coronary artery disease involving [place] coronary artery of [place] heart, unspecified whether angina present I25.10 and IFG (impaired fasting glucose) R73.01 ASSESSMENTS Encounter Date Diagnosis Assessment Notes Treatment Notes Treatment Clinical Notes Section Notes 07/02/2024 Chronic kidney disease, unspecified CKD stage (ICD-10 - N18.9) Have been stable we will continue to monitor 07/02/2024 Primary hypertension (ICD-10 - I10) Tolerating current regimen we will continue this and low-sodium diet. 07/02/2024 Benign prostatic hyperplasia with lower urinary tract symptoms, symptom details unspecified (ICD-10 - N40.1) Doing very well with regimen as per HPI and will continue. 07/02/2024 High cholesterol (ICD-10 - E78.00) Lipid panel is good on current dosing we will continue this and heart healthy diet. 07/02/2024 Coronary artery disease involving [place] coronary artery of [place] heart, unspecified whether angina present (ICD-10 - I25.10) Continue treatment regimen and follow-up with cardiology as planned 07/02/2024 IFG (impaired fasting glucose) (ICD-10 - R73.01) Minimally elevated fasting glucose we will continue to monitor this and A1c. PLAN OF TREATMENT Medication Medication Name Sig Start Date Stop Date Notes Atorvastatin Calcium 80 MG 1 tablet Oral ly nightly for 90 days Tamsulosin HCl 0.4 MG TAKE 1 CAPSULE BY MOUTH ONCE A DAY FOR 90 DAYS for 90 days Treatment Notes Assessment Notes Chronic kidney disease, unsp ecified CKD stage Have been stable we will continue to monitor Primary hypertension Tolerating current regimen we will continue this and low-sodium diet. Benign prostatic hyperplasia with lower urinary tract symptoms, symptom details unspecified Doing very well with regimen as per HPI and will continue. High cholesterol Lipid panel is good on current dosing we will continue this and heart healthy diet. Coronary artery disease invo lving [place] coronary artery of [place] heart, unspecified whether angina present Continue treatment regimen and follow-up with cardiology as planned IFG (impaired fasting glucose) Minimally elevated fasting glucose we will continue to monitor this and A1c. Next Appt Details Follow Up: 6-7 mo w/ labs, R joy: Provider Name:HERVE BO Mar, 07/04/2025 10:30:00 AM, [address] [place], [phone], Provider Name:DIRK TOLBERT, 07/04/2025 11:00:00 AM, [address] [place], [phone], Progress Notes * Examination Category Sub-Category Detail Notes Category Not es General Examination see abov e History and Physical Notes * HPI (History of Present Illness) Category Sub-Category Detail Notes Category Not es General Pt Is here today for a follow-up visit and awv w/ nursing h/o htn, high chol, CAD w/ stent, history of ascending and transverse thoracic aortic aneurysm, h/o BPH (and nodular prostate) , h/o seizure d/o. h/o psoriasis, h/o OA The following is copied/reviewed/edited from previous -at prev visit he had c/o pain and swelling 3rd and 2nd digit left hand.he wnt to hand center and had 2 injections, has done well w/ this -for BPH has follow-up with urology for this and nodular prostate, [facility] Dr. Byrne. tells me sees them prn only.Has done well with tamsulosin -has h/o psoriasis had seen derm in [place] (office closed) will be seeing [facility] derm for psoriasis prn -h/o seizures, recent EEG normal , neuro in [facility], meds stopped over 1 yr ago and has done well. -CAD, he followed up with [facility] Dr Balbuena; 03/2022 had cardiac cath, stent was apparently blocked but has collaterals.-cardiology has been adjusting his medications to help with symptoms of angina. at his 08/2023 visit was c/o palps and holter was ordered. they also did echo this year. colonoscopy 2020 rpt in 5 yrs due for eye exam covid vac 3 or 4 flu vac utd shingles vac x 2 recent labs reviewed w/ patient: Your recent labs show: Normal blood counts no anemia, Normal liver function Cholesterol/lipid panel is good, Prostate screening test is good, Thyroid function is good, Urine test was good Kidney function remains impaired but is relatively stable. Fasting glucose was very slightly elevated. -------- ROS GENERAL: No malaise, significant weight loss or fever HEENT: No changes in vision or hearing. No sore throat. No neck pain. No lumps or masses noted in neck. RESPIRATORY: No cough, wheezing or shortness of breath CARDIOVASCULAR: No chest pain, leg swelling see hpi GI: No abdominal discomfort, blood in stools or black stools : No incontinence. No dysuria. No gross hematuria. No nocturia. MUSCULOSKELETAL: No joint pain or swelling, back pain, or muscle pain. see hpi SKIN: No lesions, rash or itching PSYCH: No sleep disturbance, mood disorder or recent psychosocial stressors. ENDOCRINE: No cold or heat intolerance, polyuria, polydipsia or goiter. HEME/LYMPH: No easy bruising or bleeding. No lymph node enlargement or tenderness. NEURO: No persistent headache, syncope, seizures, weakness or numbness -------- PE APPEARANCE: Alert and in no acute distress HEENT: NCAT, EOMI, nl conjunctiva. external ears normal. nl tms b/l , b/l hearing aids Neck is supple. No palpable lymphadenopathy. No thyromegaly. HEART: RRR with normal S1 and S2 LUNG: clear to auscultation ABDOMEN: Bowel sounds normoactive, soft, non-tender,nondistended, no palp masses BACK: No pain to palpation EXTREMITIES: Extremities warm and without edema NEURO: Awake, alert and oriented x 3 , gait normal, 5/5 strenght in upper and lower ext prox and distal x 4 SKIN: Skin color, texture, turgor normal.
--- OUTSIDE RECORDS SUMMARY | 2025-01-03 06:00 | XMS_ITS ---
Author Organization [facility] Address [facility] [place], [place] [id number] Care Team Providers Care General Purchasing Agent Name Role Phone MADELINELAKESHIA ALVARADOLA Primary Care Provide r [phone] ALLERGIES Allergen (clinical drug ingredient) Drug/Non Drug [...] ascending aorta without rupture (I71.21) Active confirmed [id number] VITAL SIGNS Height 67 in 01/03/2025 Weight 179 lbs 01/03/2025 Blood pressure systolic 124 mm Hg 01/04/20 25 Blood pressure diastolic 76 mm Hg 025 BMI 28.03 kg/m2 01/03/2025 Encounters Encounter Location Date Provider Diagnosis [facility] [address] [place] [address] 01/03/2025 DIRK GRANT Primary hypertension I10 ; Chronic kidney disease, unspecified CKD stage N18.9 ; High cholesterol E78.00 ; Coronary artery disease involving [place] coronary artery of [place] heart, unspecified whether angina present I25.10 ; [...] healthy diet 01/03/2025 Coronary artery disease involving [place] coronary artery of [place] heart, unspecified whether angina present (ICD-10 - [...] healthy diet Coronary artery disease invo lving [place] coronary artery of [place] heart, unspecified whether angina present cont meds [...] Test Test Name Order Date Urinalysis, Complete [id number]/[id number] 025 Hepatic Function Panel [id number] LP+Non-HDL Cholesterol-[id number] 01/04/2025 BMP8+eGFR-[id number] 01/04/2025 Next Appt Details Follow Up: 6 Months, Reason: Provider Name:HERVE Manuel, 07/04/2025 10:30:00 AM, [address] [place] [address], [phone], Provider Name:DIRK TOLBERT, 07/04/2025 11:00:00 AM, [address] [place] [address], [phone], Progress Notes * Examination Category Sub-Category Detail [...] -has h/o psoriasis had seen derm in [place] (office closed) will be seeing werner[facility]oug derm for psoriasis prn -h/o seizures, [facility], meds stopped over 1 yr ago [...]
--- OUTSIDE RECORDS SUMMARY | 2025-01-03 06:23 | XMS_ITS ---
Author Organization [facility] Address [address] [place] [phone] Care Team Providers Care Nanotechnology Engineering Technologist Name Role Phone DIRK GRANT Primary Care Provide r [phone] REASON FOR VISIT fax labs SOCIAL HISTORY Sex Assigned At : Social History Observation Description Sex Assigned At Male Encounters Encounter Location Date Provider Diagnosis [address] [address] 01/03/2025 DIRK GRANT PLAN OF TREATMENT Next Appt Details Provider Name:HERVE Manuel, 07/04/2025 10:30:00 AM, [address] [place] [address], [phone], Provider Name:DIRK TOLBERT, 07/04/2025 11:00:00 AM, [address] [place] [address], [phone],
[2025-02-15 07:21] VITALS: BP 112/64; PULSE 55; TEMP 36.5; O2SAT 98; BMI 27.7
--- NOTE | 2025-02-15 07:21 | MHC.OFFWIV ---
Intake Vital Signs 02/15/25 07:21 Height 5 ft 7 in Weight 177 lb BMI 27.7 BP 112/64 Blood Pressure Location Lt brachial Position Sitting Pulse 55 Pulse Source Pulse Oximeter Temp 97.7 F Temp Source Oral Pulse Oximetry (%) 98 Oxygen Delivery Method Room Air Intake Visit Reasons: EP thrush medication not working Intake Note: Pt is here today c/o medication for thrush isn't working, been taking since tuesday Patient Tobacco Use Status: Former Tobacco user Allergies phenytoin (From Dilantin) Allergy (Mild, Verified 02/13/25 08:21) Rash HPI HPI Comments History of Present Illness Details History - The patient is a 65-year-old male presenting with concerns of tongue coating. - The patient reports a previous episode of thrush , which was treated successfully with a different medication, not an antifungal, it was treated with magic mouthwash. - The current episode involves white patches in the mouth, accompanied by rawness. - No improvement noted after two days of treatment with a prescribed mouthwash. - The patient recalls a past treatment involving a magic mouthwash containing lidocaine, which provided relief. - The patient denies diabetes Review of Systems - Oral: Reports white patches in the mouth that do not scrape off, with associated rawness. - Endocrine: Denies diabetes. All systems reviewed and are unremarkable except as noted in HPI and below [facility] Social History Patient Tobacco Use Status: Former Tobacco user Review of Systems Const All systems reviewed & are unremarkable except as noted in HPI and below Physical Exam Vital Signs: Last Vital Signs Temp 97.7 F 02/15/25 07:21 Pulse 55 02/15/25 07:21 BP 112/64 02/15/25 07:21 Pulse Ox 98 02/15/25 07:21 Oxygen Delivery Method Room Air 02/15/25 07:21 BMI result Body Mass Index 27.7 Const General: cooperative, healthy appearing, comfortable, no acute distress and well developed Orientation/consciousness: patient oriented x3 Limitations: no limitations HEENT Head: Yes normal to inspection Mouth/tongue images:  1. white-cervantes coating Neck Neck: Yes normal visual inspection and Yes supple Neuro General: patient oriented x3 Assessment & Plan Assessment & Plan (1) Tongue coating: Code(s): K14.3 - Hypertrophy of tongue papillae Plan: Plan - Unclear this is thrush, as pt had this previously and Magic Mouthwash helped, we will trial it again. - Can continue nystatin swish and swallow. - If no improvement, please return to the clinic or follow up with your PCP. Patient was informed and verbally consented to the use of an ambient scribe for clinic note documentation during this visit. Medications: Refilled Magic Mouthwash Diphen/Lido/Antacid 1:1:1 Lidocaine Viscous 2 % 80mL; diphenhydramine 12.5 mg/5 mL 80mL; aluminum-mag hydrox-simeth [id number]/5mL 80mL 5 mL PO Q6-8H 240 mL 0RF Coding Level of Care Code New Pt Level 3 (68951) Diagnoses Tongue coating K14.3
--- OUTSIDE RECORDS SUMMARY | 2025-02-15 07:22 | XMS_ITS | Patient Health Record ---
Author Organization [facility] Address [address] [place] [address] Care Team Providers Care Chef Under Name Role Phone Beata Cruz Primary Care Provi romi Unavailable PHIL DELGADO Unavailable [phone] Allergies Allergen (clinical drug ingredient) Drug/Non Drug [...] Risk Notes Problem Mononeuropathy of lower limb (294228056) Neuritis of right foot (G57.91) Active confirmed Problem Mononeuropathy of lower limb (655781743) Neuritis of left foot (G57.92) Active confirmed Plan Of Treatment Pending Test Test Name Order Date X ray : Foot, left 3v 06/28/2023 X ray : Foot, right 3v 06/28/2023 Insurance Providers Payer Name Payer Address Payer Phone Subscriber Number Group Number Insured Name Patient Relationship to Insured Coverage Start Date Coverage End Date Medicare of [place] [address] [phone] [id number] Gerry Galan Self - patient is the insured [facility] [address] [place] [phone] [id number] Gerry Galan Self - patient is the insured Medical (General) History Medical History History ICD Code seasonal allergies OA hyperlipidemia history of [place] with stent placement- Dr. Balbuena hypertension history of pneumonia psoriasis history of seizures psoriasiform dermatitis pain in right foot pain in left foot coronary artery disease high cholesterol benign prostatic hyperplasia with lower urinary tract symptoms elevated liver function test chronic kidney disease + COVID 2023 COVID vaccinated Surgical History Surgery Date(Month/Year) cardiac stent- [facility] [place] Hospitalization History Reason Date(Month/Year) cardiac stent 2017
--- OUTSIDE RECORDS SUMMARY | 2025-02-15 07:22 | XMS_ITS | Patient Health Record ---
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) Active confirmed 71760202 Problem Primary hypertension (I10) Active confirmed 39460137 Problem High cholesterol (E78.00) Active confirmed 60786100 Problem Hearing loss, unspecified hearing loss type, unspecified laterality (H91.90) Active confirmed 57754741 Problem Benign prostatic hyperplasia with lower urinary tract symptoms, symptom details unspecified (N40.1) Active confirmed 694536182 Problem Chronic kidney disease, unspecified CKD stage (N18.9) Active confirmed 553422978 Problem Nonintractable epilepsy without status epilepticus, unspecified epilepsy type (G40.909) Active confirmed 924448487 neuro alexei. Problem Coronary artery disease involving [place] coronary artery of [place] heart, unspecified whether angina present (I25.10) Active confirmed 111967774 Problem Thoracic ascending aortic aneurysm (I71.2) Active confirmed 197132535 Problem Aneurysm of ascending aorta without rupture (I71.21) Active confirmed 289831669 VITAL SIGNS Blood pressure diastolic 76 mm Hg 01/03/2025 Height 67 in 01/03/2025 Blood pressure systolic 124 mm Hg 01/03/2025 Weight 179 lbs 01/03/2025 BMI 28.03 kg/m2 01/03/2025 Encounters Encounter Location Date Provider Diagnosis [facility] [address] [place] [address] 06/11/2024 DIRK GRANT Elevated liver function tests R79.89 ; Chronic kidney disease, unspecified CKD stage N18.9 ; Primary hypertension I10 ; Benign prostatic hyperplasia with lower urinary tract symptoms, symptom details unspecified N40.1 ; High cholesterol E78.00 ; Coronary artery disease involving [place] coronary artery of [place] heart, unspecified whether angina present I25.10 ; Anxiety F41.9 ; Nonintractable epilepsy without status epilepticus, unspecified epilepsy type G40.909 and Prostate cancer screening Z12.[address] [place] [address] 07/02/2024 DIRK BHATIALASACCO Medicare annual wellness visit, subsequent Z00.[address] [place] [address] 07/02/2024 [place] [address] 07/02/2024 DIRK BHATIALASACCO Chronic kidney disease, unspecified CKD stage N18.9 ; Primary hypertension I10 ; Benign prostatic hyperplasia with lower urinary tract symptoms, symptom details unspecified N40.1 ; High cholesterol E78.00 ; Coronary artery disease involving [place] coronary artery of [place] heart, unspecified whether angina present I25.10 and IFG (impaired fasting glucose) R73.01 [place] [id number] 01/03/2025 DIRK CHANICOLASACCO Primary hypertension I10 ; Chronic kidney disease, unspecified CKD stage N18.9 ; High cholesterol E78.00 ; Coronary artery disease involving [place] coronary artery of [place] heart, unspecified whether angina present I25.10 ; Aneurysm of ascending aorta without rupture I71.21 ; Benign prostatic hyperplasia with lower urinary tract symptoms, symptom details unspecified N40.1 and History of tobacco use Z87.891 [place] [id number] 01/03/2025 DIRK CHANICOLASACCO ASSESSMENTS Encounter Date Diagnosis [...] will continue. 01/03/2025 Coronary artery disease involving [place] coronary artery of [place] heart, unspecified whether angina present (ICD-10 - [...] - E78.00) 07/02/2024 Coronary artery disease involving [place] coronary artery of [place] heart, unspecified whether angina present (ICD-10 - I25.10) Continue treatment regimen and follow-up with cardiology as planned 01/03/2025 Benign prostatic hyperplasia with lower urinary tract symptoms, symptom details unspecified (ICD-10 - N40.1) had annual fu w/ uro earlier this year, doing well on current regimen w/o any concerns 06/11/2024 Coronary artery disease involving [place] coronary artery of [place] heart, unspecified whether angina present (ICD-10 - [...] URINE 07/21/2023 URINALYSIS MICROSCOPIC 07/21/2023 Urinalysis, Complete w/ME-[id number] [id number] Hepatic Function Panel [phone] LP+Non-HDL Cholesterol-040437 01/04/2025 BMP8+eGFR-896223 01/04/2025 Next Appt Details Provider Name:HERVE Manuel, 07/04/2025 10:30:00 AM, [address] [place], [address], Provider Name:DIRK TOLBERT, 07/04/2025 11:00:00 AM, [address] [place], [address], Insurance Providers Payer Name Payer Address Payer Phone Subscriber Number Group Number Insured Name Patient Relationship to Insured Coverage Start Date Coverage End Date MEDICARE [employer] [address] [place] [address] [id number] GEORGE LOPEZ Self - patient is the insured 3 [employer] MEDICARE SUPPLEMENT [place] [address] [place] [address] [id number] Self - patient is the insured 1 MEDICAL (GENERAL) HISTORY Medical History History ICD Code Seasonal Allergies OA Hyperlipidemia Hx of [place] w/Stent placement-Dr Balbuena HTN Hx of Pneumonia Psoriasis Hx of Seizures-[facility] covid 15 Feb 2023, August 2023 HP:Wen Kay [phone] Surgical History Surgery Date(Month/Year) Cardiac Stent [facility] 2017
--- OUTSIDE RECORDS SUMMARY | 2025-02-15 07:22 | XMS_ITS | Clinical Summary ---
Author Organization [facility] Address [address] [place] [address] Phone Care Team Providers Care Filling Machine Operator Name Role Phone Daria Cruz DO Primary [...] by mouth 1 (one) time each day. 01/19/20 22 Active tamsulosin (FLOMAX) 0.4 mg 24 hr capsule TAKE 1 CAPSULE BY MOUTH EVERY DAY 30 MINUTES AFTER SAME MEAL 02/24/20 22 Active ranolazine (RANEXA) 1,000 mg 12 hr tablet TAKE 1 TABLET BY MOUTH TWICE A DAY 180 tablet 3 10/13/19 25 Active carvediloL (COREG) 12.5 mg tablet TAKE 1 TABLET BY MOUTH TWICE DAILY WITH MEALS 180 tablet 1 11/09/19 25 Active amLODIPine (NORVASC) 5 mg tabletIndication s:Coronary artery disease, unspecified vessel or lesion type, unspecified whether angina present, unspecified whether [place] or transplanted heart TAKE 1 TABLET BY MOUTH EVERY DAY 90 tablet 1 02/15/20 25 Active amLODIPine (NORVASC) 5 mg tabletIndication s:Coronary artery disease, unspecified vessel or lesion type, unspecified whether angina present, unspecified whether [place] or transplanted heart Take 1 tablet (5 mg total) by mouth 1 (one) time each day. 90 tablet 1 08/18/19 25 025 Discontinued Active Problems Problem Noted Date Diagnosed [...] to notify me. Aneurysm of ascending aorta ([facility] V[facility]) 2021 Overview (06/11/2024): Last Assessment & [...] sodium chloride 0.9% 8.7 mL injection Epilepsy ([facility] V24, [facility] V28) 12/23/2020 Overview (06/11/2024): Follows with neurology. [...] her symptoms. Chest pain 04/13/2022 08/17/2024 Convulsions (CMS/HCC V24, CMS/HCC V28) 08/23/2006 08/17/2024 Immunizations Name Administration Dates [...] * Annual BMP Blood Test (09/09/2021) Pathologist [facility] Annual BMP Blood Test Abstracted Historical Provider HEALTH MAINTENANCE Final Result * Lipid panel (08/03/2021) Pathologist [facility] LDL/HDL Ratio 2 Triglycerides 111 0 - [...] Recently Relevant to Health Maintenance Insurance MEDICARE [facility] Care Teams Filling Machine Operator Relationship Specialty Start Date End Date Daria Cruz DO [facility] [address] [place] [address] PCP - General 04/13/22
== END 2025-02-15 08:01 | disposition home or self-care (01) ==
PROVIDERS: Visit Provider Physician Assistant
DX: K14.3 Hypertrophy of tongue papillae (principal)

== ENCOUNTER → 2025-02-15 07:19 | Outpatient (BNVA) | payer MEDICARE, OTHER, SELFPAY | PROVIDERS: Visit Provider Physician Assistant | DX: K14.3 Hypertrophy of tongue papillae (principal) | CPT/HCPCS: 99212 ==

== ENCOUNTER 2025-02-21 08:14 | Outpatient (AMB) | payer MEDICARE, OTHER, SELFPAY ==
--- OUTSIDE RECORDS SUMMARY | 2024-07-02 05:30 | XMS_ITS ---
Author Organization [facility] Address [address], [place] [phone] Care Team Providers Care Sweeper Operator Highways Name Role Phone JANNETTEDIRK BREEN Primary Care Provide r [phone] ALLERGIES Allergen (clinical drug ingredient) Drug/Non Drug [...] 07/02/2024 Encounters Encounter Location Date Provider Diagnosis [facility] [address] [place] [address] 07/02/2024 DIRK JUANITA Medicare annual wellness visit, [...] Reason: Provider Name:HERVE Manuel, 07/04/2025 10:30:00 AM, [address] [place] [address], [phone], Provider Name:DIRK TOLBERT, 07/04/2025 11:00:00 AM, [address] [place] [address], [phone], History and Physical Notes * HPI (History [...]
--- OUTSIDE RECORDS SUMMARY | 2024-07-02 05:51 | XMS_ITS ---
Author Organization [facility] Address [address] [place] [phone] Care Team Providers Care Flame Cutting Machine Operator Helper Name Role Phone DIRK GRANT Primary Care Provide r [phone] REASON FOR VISIT Update Kiosk Demographics SOCIAL HISTORY Sex Assigned At : Social History Observation Description Sex Assigned At Male Encounters Encounter Location Date Provider Diagnosis [address] [address] 07/02/2024 DIRK GRANT PLAN OF TREATMENT Next Appt Details Provider Name:HERVE Manuel, 07/04/2025 10:30:00 AM, [address] [place] [address], [phone], Provider Name:DIRK TOLBERT, 07/04/2025 11:00:00 AM, [address] [place] [address], [phone],
--- OUTSIDE RECORDS SUMMARY | 2024-07-02 06:00 | XMS_ITS ---
Author Organization [facility] Address [address], [place] [id number] Care Team Providers Care Medical Billing Associate Name Role Phone MADELINELAKESHIA ALVARADOLA Primary Care Provide r [phone] ALLERGIES Allergen (clinical drug ingredient) Drug/Non Drug [...] 07/02/2024 Encounters Encounter Location Date Provider Diagnosis [facility] [address] [place] [address] 07/02/2024 DIRK GRANT Chronic kidney disease, unspecified CKD stage N18.9 ; Primary hypertension I10 ; Benign prostatic hyperplasia with lower urinary tract symptoms, symptom details unspecified N40.1 ; High cholesterol E78.00 ; Coronary artery disease involving [place] coronary artery of [place] heart, unspecified whether angina present I25.10 and [...] healthy diet. 07/02/2024 Coronary artery disease involving [place] coronary artery of [place] heart, unspecified whether angina present (ICD-10 - [...] healthy diet. Coronary artery disease invo lving [place] coronary artery of [place] heart, unspecified whether angina present Continue treatment regimen and follow-up with cardiology as planned IFG (impaired fasting glucose) Minimally elevated fasting glucose we will continue to monitor this and A1c. Next Appt Details Follow Up: 6-7 mo w/ labs, R joy: Provider Name:HERVE BO Mar, 07/04/2025 10:30:00 AM, [address] [place], [address], Provider Name:DIRK TOLBERT, 07/04/2025 11:00:00 AM, [address] [place], [address], Progress Notes * Examination Category Sub-Category Detail [...] -has h/o psoriasis had seen derm in [place] (office closed) will be seeing [facility] derm for psoriasis prn -h/o seizures, recent EEG normal , neuro in [facility], meds stopped over 1 yr ago and [...]
--- OUTSIDE RECORDS SUMMARY | 2025-01-03 06:00 | XMS_ITS ---
Author Organization [facility] Address [facility] [place], [place] [id number] Care Team Providers Care Nut Sheller Machine Operator Name Role Phone MADELINELAKESHIA ALVARADOLA Primary Care Provide r [phone] ALLERGIES Allergen (clinical drug ingredient) Drug/Non Drug [...] ascending aorta without rupture (I71.21) Active confirmed [id number] VITAL SIGNS Height 67 in 01/03/2025 Weight 179 lbs 01/03/2025 Blood pressure systolic 124 mm Hg 01/04/20 25 Blood pressure diastolic 76 mm Hg 025 BMI 28.03 kg/m2 01/03/2025 Encounters Encounter Location Date Provider Diagnosis [facility] [address] [place] [address] 01/03/2025 DIRK GRANT Primary hypertension I10 ; Chronic kidney disease, unspecified CKD stage N18.9 ; High cholesterol E78.00 ; Coronary artery disease involving [place] coronary artery of [place] heart, unspecified whether angina present I25.10 ; [...] healthy diet 01/03/2025 Coronary artery disease involving [place] coronary artery of [place] heart, unspecified whether angina present (ICD-10 - [...] healthy diet Coronary artery disease invo lving [place] coronary artery of [place] heart, unspecified whether angina present cont meds [...] Test Test Name Order Date Urinalysis, Complete [id number] 025 Hepatic Function Panel [id number] [id number] LP+Non-HDL Cholesterol-[id number] 01/04/2025 BMP8+eGFR-973587 01/04/2025 Next Appt Details Follow Up: 6 Months, Reason: Provider Name:HERVE Manuel, 07/04/2025 10:30:00 AM, [address] [place] [address], [phone], Provider Name:DIRK TOLBERT, 07/04/2025 11:00:00 AM, [address] [place] [address], [phone], Progress Notes * Examination Category Sub-Category Detail [...] -has h/o psoriasis had seen derm in [place] (office closed) will be seeing [facility] derm for psoriasis prn -h/o seizures, [facility], meds stopped over 1 yr [...]
--- OUTSIDE RECORDS SUMMARY | 2025-01-03 06:23 | XMS_ITS ---
Author Organization [facility] Address [address] [place] [phone] Care Team Providers Care Arborist Representative Name Role Phone DIRK GRANT Primary Care Provide r [phone] REASON FOR VISIT fax labs SOCIAL HISTORY Sex Assigned At : Social History Observation Description Sex Assigned At Male Encounters Encounter Location Date Provider Diagnosis [address] [address] 01/03/2025 DIRK GRANT PLAN OF TREATMENT Next Appt Details Provider Name:HERVE Manuel, 07/04/2025 10:30:00 AM, [address] [place] [address], [phone], Provider Name:DIRK TOLBERT, 07/04/2025 11:00:00 AM, [address] [place] [address], [phone],
[2025-02-21 08:15] VITALS: BP 126/62; PULSE 68; RESP 16; TEMP 36.8; O2SAT 98; BMI 27.4
--- NOTE | 2025-02-21 08:15 | MHC.OFFWIV ---
Intake Vital Signs 02/21/25 08:15 Height 5 ft 7 in Weight 175 lb BMI 27.4 BP 126/62 Blood Pressure Location Lt brachial Position Sitting Respiration 16 Pulse 68 Pulse Source Pulse Oximeter Temp 98.3 F Temp Source Oral Pulse Oximetry (%) 98 Oxygen Delivery Method Room Air Intake Visit Reasons: EP lt hip pain Patient Tobacco Use Status: Former Tobacco user Shipping Manager Required: No Accompanied by: Self / Same As Patient Allergies phenytoin (From Dilantin) Allergy (Mild, Verified 02/21/25 08:16) Rash HPI HPI Comments History of Present Illness Details 65 y/o Male patient who presents to the walk in clinic with c/o Left Hip Pain since Yesterday. Reports that he was at the Gym yesterday and he was doing Squats and felt Sharp stabbing pain down his Left Hip. Denies any previous Surgeries, Trauma or injury to he Hip. Pt was recently seen here twice this Month for c/o white Coating Tongue. Reports pain with eating or drinking. He was prescribed Nystatin and Magic Mouthwash and has been using them together for over a week now with no improvement. Reports in the past Magic Mouthwash had worked and cleared symptoms in few days. PENDING SALE TO [facility] Medical History (Updated 02/21/25 @ 08:41 by Nitza Walker NP) Arthralgia of left hip Oral thrush Social History Patient Tobacco Use Status: Former Tobacco user Review of Systems Const All systems reviewed & are unremarkable except as noted in HPI and below Physical Exam Vital Signs: Last Vital Signs Temp 98.3 F 02/21/25 08:15 Pulse 68 02/21/25 08:15 Resp 16 02/21/25 08:15 BP 126/62 02/21/25 08:15 Pulse Ox 98 02/21/25 08:15 Oxygen Delivery Method Room Air 02/21/25 08:15 BMI result Body Mass Index 27.4 Const General: no acute distress Nutritional Appearance: well nourished Orientation/consciousness: patient oriented x3 HEENT Mouth: moist mucous membranes and tongue abnormal with white coating Neuro General: patient oriented x3, gait normal (Walks with slight Limp due to pain. ) and moves all extremities Extrem Left lower extremity: hip/thigh Details: normal to inspection, tenderness Location: of the hip Location: laterally and abnormal ROM Details: pain with active ROM Details: with ADduction and with ABduction and pain with passive ROM Details: with ADduction and with ABduction; no swelling Psych Speech and movement: Normal speech and movement present Assessment & Plan Assessment & Plan (1) Oral thrush: Code(s): B37.0 - Candidal stomatitis Plan: Discontinued previous Mouth washes. Ordered Magic Mouth wash with Dexamethasone, Nystatin and Maalox. Ordered Fluconazole 150 mg weekly for 4 weeks. Advised to F/U with PCP or His Dentist if not better. (2) Arthralgia of left hip: Code(s): M25.552 - Pain in left hip Plan: Most Likely Muscular strain Ordered NSAIDs and Acetaminophen for pain relief Rest Joint and apply Ice/Heat Medications: New Miracle Mouthwash-Mirza Nystatin suspension 80 mL; Dexamethasone 30 ml; Maalox 80 mL; Swish and spit 5 mL PO BID 240 mL 0RF B37.0 - Candidal stomatitis fluconazole 150 mg PO QWEEK 4 tabs 0RF 4 weeks B37.0 - Candidal stomatitis ibuprofen 800 mg PO Q8H 20 tabs 0RF M25.552 - Pain in left hip Discontinued nystatin administer 1/2 of dose in each side of the mouth Discontinued Reason: Patient Completed Course 5 mL buccal qid 7 days 140 mL 0RF Magic Mouthwash Diphen/Lido/Antacid 1:1:1 Lidocaine Viscous 2 % 80mL; diphenhydramine 12.5 mg/5 mL 80mL; aluminum-mag hydrox-simeth [id number]/5mL 80mL Discontinued Reason: Patient Completed Course 5 mL PO Q6-8H 240 mL 0RF Coding Level of Care Code Est Pt Level 4 (98446) Diagnoses Oral thrush B37.0 Arthralgia of left hip M25.552 Time Spent (min) 20
--- OUTSIDE RECORDS SUMMARY | 2025-02-21 08:38 | XMS_ITS | Patient Health Record ---
Author Organization [facility] Address [address] [place] [address] Care Team Providers Care Taper Operator Name Role Phone Beata Cruz Primary Care Provi romi Unavailable PHIL DELGADO Unavailable [phone] Allergies Allergen (clinical drug ingredient) Drug/Non Drug [...] Risk Notes Problem Mononeuropathy of lower limb (898770232) Neuritis of right foot (G57.91) Active confirmed Problem Mononeuropathy of lower limb (730001284) Neuritis of left foot (G57.92) Active confirmed Plan Of Treatment Pending Test Test Name Order Date X ray : Foot, left 3v 06/28/2023 X ray : Foot, right 3v 06/28/2023 Insurance Providers Payer Name Payer Address Payer Phone Subscriber Number Group Number Insured Name Patient Relationship to Insured Coverage Start Date Coverage End Date Medicare of [place] [address] [phone] [id number] Gerry Galan Self - patient is the insured [facility] [address] [place] [address] [phone] [id number] Gerry Galan Self - patient is the insured Medical (General) History Medical History History ICD Code seasonal allergies OA hyperlipidemia history of [place] with stent placement- Dr. Balbuena hypertension history of pneumonia psoriasis history of seizures psoriasiform dermatitis pain in right foot pain in left foot coronary artery disease high cholesterol benign prostatic hyperplasia with lower urinary tract symptoms elevated liver function test chronic kidney disease + COVID 2023 COVID vaccinated Surgical History Surgery Date(Month/Year) cardiac stent- [facility] 2017 Hospitalization History Reason Date(Month/Year) cardiac stent 2017
--- OUTSIDE RECORDS SUMMARY | 2025-02-21 08:38 | XMS_ITS | Clinical Summary ---
Author Organization [facility] Address [address] [place] [address] Phone Care Team Providers Care Feeder Operator Automatic Name Role Phone Daria Cruz DO Primary [...] type, unspecified whether angina present, unspecified whether [place] or transplanted heart TAKE 1 TABLET BY MOUTH EVERY DAY 90 tablet 1 02/15/20 25 Active amLODIPine (NORVASC) 5 mg tabletIndication s:Coronary artery disease, unspecified vessel or lesion type, unspecified whether angina present, unspecified whether [place] or transplanted heart Take 1 tablet (5 [...] to notify me. Aneurysm of ascending aorta ([facility] V24) 2021 Overview (06/11/2024): Last Assessment & [...] sodium chloride 0.9% 8.7 mL injection Epilepsy ([facility] V24, [facility] V28) 12/23/2020 Overview (06/11/2024): Follows with neurology. [...] * Annual BMP Blood Test (09/09/2021) Pathologist [facility] Annual BMP Blood Test Abstracted Historical Provider HEALTH MAINTENANCE Final Result * Lipid panel (08/03/2021) Pathologist [facility] LDL/HDL Ratio 2 Triglycerides 111 0 - [...] Recently Relevant to Health Maintenance Insurance MEDICARE [facility] Care Teams Feeder Operator Automatic Relationship Specialty Start Date End Date Daria Cruz DO [facility] [address] [place] [address] PCP - General 04/13/22
--- OUTSIDE RECORDS SUMMARY | 2025-02-21 08:39 | XMS_ITS | Patient Health Record ---
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) Active confirmed 62415896 Problem Primary hypertension (I10) Active confirmed 11599063 Problem High cholesterol (E78.00) Active confirmed 81815174 Problem Hearing loss, unspecified hearing loss type, unspecified laterality (H91.90) Active confirmed 19024866 Problem Benign prostatic hyperplasia with lower urinary tract symptoms, symptom details unspecified (N40.1) Active confirmed 441477910 Problem Chronic kidney disease, unspecified CKD stage (N18.9) Active confirmed 548946525 Problem Nonintractable epilepsy without status epilepticus, unspecified epilepsy type (G40.909) Active confirmed 896346982 neuro alexei. Problem Coronary artery disease involving [place] coronary artery of [place] heart, unspecified whether angina present (I25.10) Active confirmed 989130130 Problem Thoracic ascending aortic aneurysm (I71.2) Active confirmed 342578710 Problem Aneurysm of ascending aorta without rupture (I71.21) Active confirmed 840230379 VITAL SIGNS Blood pressure diastolic 76 mm Hg 01/03/2025 Height 67 in 01/03/2025 Blood pressure systolic 124 mm Hg 01/03/2025 Weight 179 lbs 01/03/2025 BMI 28.03 kg/m2 01/03/2025 Encounters Encounter Location Date Provider Diagnosis [facility] [address] [place] [address] 06/11/2024 DIRK GRANT Elevated liver function tests R79.89 ; Chronic kidney disease, unspecified CKD stage N18.9 ; Primary hypertension I10 ; Benign prostatic hyperplasia with lower urinary tract symptoms, symptom details unspecified N40.1 ; High cholesterol E78.00 ; Coronary artery disease involving [place] coronary artery of [place] heart, unspecified whether angina present I25.10 ; Anxiety F41.9 ; Nonintractable epilepsy without status epilepticus, unspecified epilepsy type G40.909 and Prostate cancer screening Z12.[address] [place] [address] 07/02/2024 DIRK BHATIALASACCO Medicare annual wellness visit, subsequent [address]00.[address] [place] [address] 07/02/2024 [place] [address] 07/02/2024 DIRK BHATIALASACCO Chronic kidney disease, unspecified CKD stage N18.9 ; Primary hypertension I10 ; Benign prostatic hyperplasia with lower urinary tract symptoms, symptom details unspecified N40.1 ; High cholesterol E78.00 ; Coronary artery disease involving [place] coronary artery of [place] heart, unspecified whether angina present I25.10 and IFG (impaired fasting glucose) R73.01 [place] [phone] 01/03/2025 DIRK CHANICOLASACCO Primary hypertension I10 ; Chronic kidney disease, unspecified CKD stage N18.9 ; High cholesterol E78.00 ; Coronary artery disease involving [place] coronary artery of [place] heart, unspecified whether angina present I25.10 ; Aneurysm of ascending aorta without rupture I71.21 ; Benign prostatic hyperplasia with lower urinary tract symptoms, symptom details unspecified N40.1 and History of tobacco use Z87.891 [place] [id number] 01/03/2025 DIRK CHANICOLASACCO ASSESSMENTS Encounter Date Diagnosis [...] will continue. 01/03/2025 Coronary artery disease involving [place] coronary artery of [place] heart, unspecified whether angina present (ICD-10 - [...] - E78.00) 07/02/2024 Coronary artery disease involving [place] coronary artery of [place] heart, unspecified whether angina present (ICD-10 - I25.10) Continue treatment regimen and follow-up with cardiology as planned 01/03/2025 Benign prostatic hyperplasia with lower urinary tract symptoms, symptom details unspecified (ICD-10 - N40.1) had annual fu w/ uro earlier this year, doing well on current regimen w/o any concerns 06/11/2024 Coronary artery disease involving [place] coronary artery of [place] heart, unspecified whether angina present (ICD-10 - [...] URINE 07/21/2023 URINALYSIS MICROSCOPIC 07/21/2023 Urinalysis, Complete w/ME-[id number] 025 Hepatic Function Panel [id number] [id number] LP+Non-HDL Cholesterol-607632 01/04/2025 BMP8+eGFR-806425 01/04/2025 Next Appt Details Provider Name:HERVE Manuel, 07/04/2025 10:30:00 AM, [address] [place], [address], Provider Name:DIRK TOLBERT, 07/04/2025 11:00:00 AM, [address] [place], [address], Insurance Providers Payer Name Payer Address Payer Phone Subscriber Number Group Number Insured Name Patient Relationship to Insured Coverage Start Date Coverage End Date MEDICARE [employer] [address] [place] [address] [id number] GEORGE LOPEZ Self - patient is the insured 3 H[place] MEDICARE SUPPLEMENT [place] [address] [place] [address] [id number] JOHNGEORGE Self - patient is the insured 1 MEDICAL (GENERAL) HISTORY Medical History History ICD Code Seasonal Allergies OA Hyperlipidemia Hx of [place] w/Stent placement-Dr Balbuena HTN Hx of Pneumonia Psoriasis Hx of Seizures-[facility] covid 15 Feb 2023, August 2023 HP:Wen Kay [phone] Surgical History Surgery Date(Month/Year) Cardiac Stent [facility] 2017
== END 2025-02-21 08:41 | disposition home or self-care (01) ==
PROVIDERS: Visit Provider Nurse Practitioner Family
DX: B37.0 Candidal stomatitis (principal); M25.552 Pain in left hip

== ENCOUNTER → 2025-02-21 08:14 | Outpatient (BNVA) | payer MEDICARE, OTHER, SELFPAY | PROVIDERS: Visit Provider Nurse Practitioner Family | DX: B37.0 Candidal stomatitis (principal); M25.552 Pain in left hip | CPT/HCPCS: 99212 ==

== ENCOUNTER 2025-02-28 07:32 | Outpatient (AMB) | payer MEDICARE, OTHER, SELFPAY ==
--- OUTSIDE RECORDS SUMMARY | 2024-07-02 05:30 | XMS_ITS ---
Author Organization [facility] Address [address], [place] [phone] Care Team Providers Care Packaging Operator Name Role Phone CHNAIDIRK RIVERA Primary Care Provide r [phone] ALLERGIES Allergen (clinical drug ingredient) Drug/Non Drug Allergy documented on EMR Reaction Allergy Type Onset Date Status phenytoin Dilantin hives Drug Allergy Active REASON FOR VISIT N/39/AWV SOCIAL HISTORY Tobacco Use: Social History Observation Description Date Details (start date - stop date) Former Smoker NA - 05/30/2012 Sex Assigned At : Social History Observation Description Sex Assigned At Male Smoking Question Answer Notes Are you a: former smoker When did you stop Smoking ? 05/30/2012 How long has it been since you last smoked? > 10 years Alcohol Screen Question Answer Notes Did you have a drink contain ing alcohol in the past year? Yes How often did you have a dri nk containing alcohol in the past year? Monthly or less (1 point) How many drinks did you have on a tpical day when you were drinking in the past year? 1 or 2 (0 points) How often did you have six o r more drinks on one occassion in the past year? Never (0 points) Points 1 Interpretation Negative VITAL SIGNS Height 67 in 07/02/2024 Weight 188 lbs 07/02/2024 Blood pressure systolic 127 mm Hg 07/02/19 25 Blood pressure diastolic 78 mm Hg 025 BMI 29.44 kg/m2 07/02/2024 Encounters Encounter Location Date Provider Diagnosis [facility] [address] [place] [address] 07/02/2024 DIRK JUANITA Medicare annual wellness visit, subsequent Z00.00 ASSESSMENTS Encounter Date Diagnosis Assessment Notes Treatment Notes Treatment Clinical Notes Section Notes 07/02/2024 Medicare annual wellness visit, subsequent (ICD-10 - Z00.00) AWV reviewed with pt PLAN OF TREATMENT Treatment Notes Assessment Notes Medicare annual wellness visit, subseque nt AWV reviewed with pt Next Appt Details Follow Up: prn, Reason: Provider Name:HERVE Manuel, 07/04/2025 10:30:00 AM, [address] [place] [address], [phone], Provider Name:DIRK TOLBERT, 07/04/2025 11:00:00 AM, [address] [place] [address], [phone], History and Physical Notes * HPI (History of Present Illness) Category Sub-Category Detail Notes Category Not es General annual wellness exam Patient her e today for Annual Wellness HRA reviewed and documented with patient Depression Screening PHQ-2 (2015 Edition) Little interest or pleasure in doing things?: Not at all Feeling down, depressed, or hopeless?: N ot at all Total Score: 0
--- OUTSIDE RECORDS SUMMARY | 2024-07-02 05:51 | XMS_ITS ---
Author Organization [facility] Address [address] [place], [place] [phone] Care Team Providers Care Loop Puller Name Role Phone DIRK GRANT Primary Care Provide r [phone] REASON FOR VISIT Update Kiosk Demographics SOCIAL HISTORY Sex Assigned At : Social History Observation Description Sex Assigned At Male Encounters Encounter Location Date Provider Diagnosis [address] [address] 07/02/2024 DIRK GRANT PLAN OF TREATMENT Next Appt Details Provider Name:HERVE Manuel, 07/04/2025 10:30:00 AM, [address] [place] [address], [phone], Provider Name:DIRK TOLBERT, 07/04/2025 11:00:00 AM, [address] [place] [address], [phone],
--- OUTSIDE RECORDS SUMMARY | 2024-07-02 06:00 | XMS_ITS ---
Author Organization [facility] Address [address] [place], [place] [phone] Care Team Providers Care Blood Bank Worker Name Role Phone JANNETTEDIRK BREEN Primary Care Provide r [phone] ALLERGIES Allergen (clinical drug ingredient) Drug/Non Drug [...] 07/02/2024 Encounters Encounter Location Date Provider Diagnosis [facility] [address] [place] [address] 07/02/2024 DIRK GRANT Chronic kidney disease, unspecified CKD stage N18.9 ; Primary hypertension I10 ; Benign prostatic hyperplasia with lower urinary tract symptoms, symptom details unspecified N40.1 ; High cholesterol E78.00 ; Coronary artery disease involving [place] coronary artery of [place] heart, unspecified whether angina present I25.10 and [...] healthy diet. 07/02/2024 Coronary artery disease involving [place] coronary artery of [place] heart, unspecified whether angina present (ICD-10 - [...] healthy diet. Coronary artery disease invo lving [place] coronary artery of [place] heart, unspecified whether angina present Continue treatment regimen and follow-up with cardiology as planned IFG (impaired fasting glucose) Minimally elevated fasting glucose we will continue to monitor this and A1c. Next Appt Details Follow Up: 6-7 mo w/ labs, R joy: Provider Name:HERVE BO Mar, 07/04/2025 10:30:00 AM, [address] [place], [address], Provider Name:DIRK TOLBERT, 07/04/2025 11:00:00 AM, [address] [place], [phone], Progress Notes * Examination Category Sub-Category Detail [...] -has h/o psoriasis had seen derm in [place] (office closed) will be seeing [facility] derm for psoriasis prn -h/o seizures, recent EEG normal , neuro in [facility], meds stopped over 1 yr ago and [...]
--- OUTSIDE RECORDS SUMMARY | 2025-01-03 06:00 | XMS_ITS ---
Author Organization [facility] Address [address], [place] [id number] Care Team Providers Care Coat Repair Inspector Name Role Phone JANNETTEDIRK BREEN Primary Care Provide r [phone] ALLERGIES Allergen (clinical drug ingredient) Drug/Non Drug Allergy documented on EMR Reaction Allergy Type Onset Date Status phenytoin Dilantin hives Drug Allergy Active REASON FOR VISIT 6-7 mo w/ labs MEDICATIONS Medication SIG (Take, Route, Frequency, Duration) Notes Start Date End Date Status Ranolazine ER 1000 MG 1 tablet Orally Tw ice a day Active Carvedilol 12.5 MG 1 tablet with food O rally Twice a day Active Aspirin 81 81 MG 1 tablet Orally Once a day for 30 day(s) Active amLODIPine Besylate 5 MG 1 tablet Orally Once a day for 30 day(s) Active Stool Softener 100 MG 1 capsule as neede d Orally Once a day for 30 day(s) Active Atorvastatin Calcium 80 MG 1 tablet Oral ly nightly for 90 days Active Tamsulosin HCl 0.4 MG TAKE 1 CAPSULE BY MOUTH ONCE A DAY FOR 90 DAYS for 90 days Active SOCIAL HISTORY Sex Assigned At : Social History Observation Description Sex Assigned At Male PROBLEMS Problem Type ICD Code Onset Dates Problem Status W/U Status Risk SNOMED Code Notes Problem Aneurysm of ascending aorta without rupture (I71.21) Active confirmed [id number] VITAL SIGNS Height 67 in 01/03/2025 Weight 179 lbs 01/03/2025 Blood pressure systolic 124 mm Hg 01/04/20 25 Blood pressure diastolic 76 mm Hg 025 BMI 28.03 kg/m2 01/03/2025 Encounters Encounter Location Date Provider Diagnosis [facility] [address] [place] [address] 01/03/2025 DIRK GRANT Primary hypertension I10 ; Chronic kidney disease, unspecified CKD stage N18.9 ; High cholesterol E78.00 ; Coronary artery disease involving [place] coronary artery of [place] heart, unspecified whether angina present I25.10 ; Aneurysm of ascending aorta without rupture I71.21 ; Benign prostatic hyperplasia with lower urinary tract symptoms, symptom details unspecified N40.1 and History of tobacco use Z87.891 ASSESSMENTS Encounter Date Diagnosis Assessment Notes Treatment Notes Treatment Clinical Notes Section Notes 01/03/2025 Primary hypertension (ICD-10 - I10) tolerating current regimen well and will cont 01/03/2025 Chronic kidney disease, unspecified CKD stage (ICD-10 - N18.9) stable and will cont to monitor 01/03/2025 High cholesterol (ICD-10 - E78.00) cont current dose of statin and heart healthy diet 01/03/2025 Coronary artery disease involving [place] coronary artery of [place] heart, unspecified whether angina present (ICD-10 - I25.10) cont meds and fu w/ cards as planned 01/03/2025 Aneurysm of ascending aorta without rupture (ICD-10 - I71.21) stable, has annual imaging w/ cards 01/03/2025 Benign prostatic hyperplasia with lower urinary tract symptoms, symptom details unspecified (ICD-10 - N40.1) had annual fu w/ uro earlier this year, doing well on current regimen w/o any concerns 01/03/2025 History of tobacco use (ICD-10 - Z87.891) quit about 12 yrs started age 14 yo 1.5 ppd x 40 yrs have orderd LDCT and screening for AAA 01/03/2025 Other had shingles vac x 2, prevnar 20, flu vac, tdap, PLAN OF TREATMENT Medication Medication Name Sig Start Date Stop Date Notes Atorvastatin Calcium 80 MG 1 tablet Oral ly nightly for 90 days Tamsulosin HCl 0.4 MG TAKE 1 CAPSULE BY MOUTH ONCE A DAY FOR 90 DAYS for 90 days Treatment Notes Assessment Notes Primary hypertension tolerating current regimen well and will cont Chronic kidney disease, unsp ecified CKD stage stable and will cont to monitor High cholesterol cont current dose of statin and heart healthy diet Coronary artery disease invo lving [place] coronary artery of [place] heart, unspecified whether angina present cont meds and fu w/ cards as planned Aneurysm of ascending aorta without rupt ure stable, has annual imaging w/ cards Benign prostatic hyperplasia with lower urinary tract symptoms, symptom details unspecified had annual fu w/ uro earlier this year, doing well on current regimen w/o any concerns History of tobacco use quit about 12 yrs started age 14 yo 1.5 ppd x 40 yrs have orderd LDCT and screening for AAA Other had shingles vac x 2 , prevnar 20, flu vac, tdap, Future Test Test Name Order Date Urinalysis, Complete [id number] Hepatic Function Panel [id number] LP+Non-HDL Cholesterol-[id number] 01/04/2025 BMP8+eGFR-[id number] 01/04/2025 Next Appt Details Follow Up: 6 Months, Reason: Provider Name:HERVE Manuel, 07/04/2025 10:30:00 AM, [address] [place] [address], [phone], Provider Name:DIRK TOLBERT, 07/04/2025 11:00:00 AM, [address] [place] [address], [phone], Progress Notes * Examination Category Sub-Category Detail Notes Category Not es General Examination see abov e History and Physical Notes * HPI (History of Present Illness) Category Sub-Category Detail Notes Category Not es General Pt Is here today for a follow-up visit h/o htn, high chol, CAD w/ stent, [...] -has h/o psoriasis had seen derm in [place] (office closed) will be seeing [facility] derm for psoriasis prn -h/o seizures, [place] EEG normal [facility] [place] [facility], meds stopped over 1 yr ago and has done well. -CAD, he followed up with [facility] cards Dr Balbuena; 03/2022 had cardiac cath, stent was apparently blocked but has collaterals.-cardiology has been adjusting his medications to help with symptoms of angina. at his 08/2023 visit was c/o palps and holter was ordered. they also did echo this year and has routine fu w/ them. colonoscopy 2020 rpt in 5 yrs due for eye exam covid vac 3 or 4 flu vac utd shingles vac x 2 utd w/ immunizations. recent labs reviewed w/ patient: Your recent labs show: Your recent labs are normal: Fasting glucose, electrolytes, liver function. Overall blood sugars or hemoglobin A1c are good at 5.5%. Cholesterol panel is good Kidney function is slightly impaired, But overall improved from previous -------- ROS GENERAL: No malaise, significant weight [...]
--- OUTSIDE RECORDS SUMMARY | 2025-01-03 06:23 | XMS_ITS ---
Author Organization [facility] Address [address] [place], [place] [phone] Care Team Providers Care Aluminum Boat Assembly Supervisor Name Role Phone DIRK GRANT Primary Care Provide r [phone] REASON FOR VISIT fax labs SOCIAL HISTORY Sex Assigned At : Social History Observation Description Sex Assigned At Male Encounters Encounter Location Date Provider Diagnosis [address] [address] 01/03/2025 DIRK GRANT PLAN OF TREATMENT Next Appt Details Provider Name:HERVE Manuel, 07/04/2025 10:30:00 AM, [address] [place] [address], [phone], Provider Name:DIRK TOLBERT, 07/04/2025 11:00:00 AM, [address] [place] [address], [phone],
[2025-02-28 07:35] VITALS: BP 100/72; PULSE 65; RESP 15; TEMP 36.6; O2SAT 97; BMI 27.2
--- NOTE | 2025-02-28 07:35 | MHC.OFFWIV ---
Intake Vital Signs 02/28/25 07:35 Height 5 ft 7 in Weight 174 lb BMI 27.2 BP 100/72 Blood Pressure Location Rt brachial Position Sitting Respiration 15 Pulse 65 Pulse Source Pulse Oximeter Temp 97.9 F Temp Source Oral Pulse Oximetry (%) 97 Oxygen Delivery Method Room Air Intake Visit Reasons: EP-mouth issues Intake Note: Pt is here today c/o re-current thrush, is requesting mouth rise rx Patient Tobacco Use Status: Former Tobacco user Allergies phenytoin (From Dilantin) Allergy (Mild, Verified 02/28/25 07:40) Rash HPI HPI Comments History of Present Illness Details 65 y/o Male patient who presents to the walk in clinic with c/o Oral thrush. Pt has been seen here multiple times for similar problem. Pt c/o white Coating Tongue. Reports pain with eating or drinking. He was prescribed Nystatin and Magic Mouthwash ~ 4 doses with moderate improvement. Reports that the Magic Mouthwash helps with tongue burning and he is asking for more refills. Reports that the Lidocaine helped with numbing the tongue. At the last visit I gave him Rx for Fluconazole 120 mg Once Weekly - he has so far taken 2 doses. Informed Patient that systemic reactions from over-absorption/over use of Lidocaine has risk for serious side effects such as: Altered or unusual taste, including a bitter or metallic taste. Slowed or shallow breathing andShortness of breath.? [facility] Medical History (Updated 02/21/25 @ 08:41 by Nitza Walker NP) Arthralgia of left hip Oral thrush Social History Patient Tobacco Use Status: Former Tobacco user Review of Systems Const All systems reviewed & are unremarkable except as noted in HPI and below Physical Exam Vital Signs: Last Vital Signs Temp 97.9 F 02/28/25 07:35 Pulse 65 02/28/25 07:35 Resp 15 02/28/25 07:35 BP 100/72 02/28/25 07:35 Pulse Ox 97 02/28/25 07:35 Oxygen Delivery Method Room Air 02/28/25 07:35 BMI result Body Mass Index 27.2 Const General: no acute distress Nutritional Appearance: well nourished Orientation/consciousness: patient oriented x3 HEENT Mouth: tongue abnormal (Very Mild White coating on tongue) Throat: Yes uvula midline Resp Effort & Inspection: normal respiratory effort Cardio Heart sounds: S1 normal heart sound present and S2 normal heart sound present Neuro General: patient oriented x3 and gait normal Psych Speech and movement: Normal speech and movement present Assessment & Plan Assessment & Plan (1) Oral thrush: Code(s): B37.0 - Candidal stomatitis Plan: Advised the chronic use of Lidocaine has systemic reactions from over-absorption. There is good improvement - Tongue has less coating. Continue to take Fluconazole and complete Treatment. Limit sugary and processed foods Advise to get screened for T2DM and HIV - Individuals with weakened immune system, and diabetes are at higher risk of developing oral thrush. Coding Level of Care Code Est Pt Level 4 (83883) Diagnoses Oral thrush B37.0 Time Spent (min) 20
--- OUTSIDE RECORDS SUMMARY | 2025-02-28 07:39 | XMS_ITS | Clinical Summary ---
Author Organization [facility] Address [address] [place] [address] Phone Care Team Providers Care Printing Plate Setter Name Role Phone Daria Cruz DO Primary [...] type, unspecified whether angina present, unspecified whether [place] or transplanted heart TAKE 1 TABLET BY MOUTH EVERY DAY 90 tablet 1 02/15/20 25 Active amLODIPine (NORVASC) 5 mg tabletIndication s:Coronary artery disease, unspecified vessel or lesion type, unspecified whether angina present, unspecified whether [place] or transplanted heart Take 1 tablet (5 [...] to notify me. Aneurysm of ascending aorta ([facility] V24) 2021 Overview (06/11/2024): Last Assessment & [...] sodium chloride 0.9% 8.7 mL injection Epilepsy ([facility] V24, [facility] V28) 12/23/2020 Overview (06/11/2024): Follows with neurology. [...] (CMS/HCC V24, CMS/HCC V28) 08/23/2006 08/17/2024 Immunizations Immunization Administration Dates Next Due Influenza Quadravalent, MDCK [...] * Annual BMP Blood Test (09/09/2021) Pathologist [facility] Annual BMP Blood Test Abstracted Historical Provider HEALTH MAINTENANCE Final Result * Lipid panel (08/03/2021) Pathologist [facility] LDL/HDL Ratio 2 Triglycerides 111 0 - [...] Recently Relevant to Health Maintenance Insurance MEDICARE [facility] Care Teams Printing Plate Setter Relationship Specialty Start Date End Date Daria Cruz DO [facility] [address] [place] [address] PCP - General 04/13/22
--- OUTSIDE RECORDS SUMMARY | 2025-02-28 07:39 | XMS_ITS | Patient Health Record ---
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) Active confirmed 89277435 Problem Primary hypertension (I10) Active confirmed 32671251 Problem High cholesterol (E78.00) Active confirmed 84996446 Problem Hearing loss, unspecified hearing loss type, unspecified laterality (H91.90) Active confirmed 71007127 Problem Benign prostatic hyperplasia with lower urinary tract symptoms, symptom details unspecified (N40.1) Active confirmed 248217015 Problem Chronic kidney disease, unspecified CKD stage (N18.9) Active confirmed 620765040 Problem Nonintractable epilepsy without status epilepticus, unspecified epilepsy type (G40.909) Active confirmed 633168224 neuro alexei. Problem Coronary artery disease involving [place] coronary artery of [place] heart, unspecified whether angina present (I25.10) Active confirmed 050968275 Problem Thoracic ascending aortic aneurysm (I71.2) Active confirmed 370694958 Problem Aneurysm of ascending aorta without rupture (I71.21) Active confirmed 872410688 VITAL SIGNS Blood pressure diastolic 76 mm Hg 01/03/2025 Height 67 in 01/03/2025 Blood pressure systolic 124 mm Hg 01/03/2025 Weight 179 lbs 01/03/2025 BMI 28.03 kg/m2 01/03/2025 Encounters Encounter Location Date Provider Diagnosis [facility] [address] [place] [address] 06/11/2024 DIRK GRANT Elevated liver function tests R79.89 ; Chronic kidney disease, unspecified CKD stage N18.9 ; Primary hypertension I10 ; Benign prostatic hyperplasia with lower urinary tract symptoms, symptom details unspecified N40.1 ; High cholesterol E78.00 ; Coronary artery disease involving [place] coronary artery of [place] heart, unspecified whether angina present I25.10 ; Anxiety F41.9 ; Nonintractable epilepsy without status epilepticus, unspecified epilepsy type G40.909 and Prostate cancer screening Z12.5 [place] [address] 07/02/2024 DIRK BHATIALASACCO Medicare annual wellness visit, subsequent Z00.[address] [place] [address] 07/02/2024 [place] [address] 07/02/2024 DIRK BHATIALASACCO Chronic kidney disease, unspecified CKD stage N18.9 ; Primary hypertension I10 ; Benign prostatic hyperplasia with lower urinary tract symptoms, symptom details unspecified N40.1 ; High cholesterol E78.00 ; Coronary artery disease involving [place] coronary artery of [place] heart, unspecified whether angina present I25.10 and IFG (impaired fasting glucose) R73.01 [place] [id number] 01/03/2025 DIRK CHANICOLASACCO Primary hypertension I10 ; Chronic kidney disease, unspecified CKD stage N18.9 ; High cholesterol E78.00 ; Coronary artery disease involving [place] coronary artery of [place] heart, unspecified whether angina present I25.10 ; Aneurysm of ascending aorta without rupture I71.21 ; Benign prostatic hyperplasia with lower urinary tract symptoms, symptom details unspecified N40.1 and History of tobacco use Z87.891 [place] [id number] 01/03/2025 DIRK CHANICOLASACCO ASSESSMENTS Encounter Date Diagnosis [...] will continue. 01/03/2025 Coronary artery disease involving [place] coronary artery of [place] heart, unspecified whether angina present (ICD-10 - [...] - E78.00) 07/02/2024 Coronary artery disease involving [place] coronary artery of [place] heart, unspecified whether angina present (ICD-10 - I25.10) Continue treatment regimen and follow-up with cardiology as planned 01/03/2025 Benign prostatic hyperplasia with lower urinary tract symptoms, symptom details unspecified (ICD-10 - N40.1) had annual fu w/ uro earlier this year, doing well on current regimen w/o any concerns 06/11/2024 Coronary artery disease involving [place] coronary artery of [place] heart, unspecified whether angina present (ICD-10 - [...] URINE 07/21/2023 URINALYSIS MICROSCOPIC 07/21/2023 Urinalysis, Complete w/ME-066819 025 Hepatic Function Panel [id number] LP+Non-HDL Cholesterol-287314 01/04/2025 BMP8+eGFR-512934 01/04/2025 Next Appt Details Provider Name:HERVE Manuel, 07/04/2025 10:30:00 AM, [address] [place], [address], Provider Name:DIRK TOLBERT, 07/04/2025 11:00:00 AM, [address] [place], [address], Insurance Providers Payer Name Payer Address Payer Phone Subscriber Number Group Number Insured Name Patient Relationship to Insured Coverage Start Date Coverage End Date MEDICARE [employer] [address] [place] [address] [id number] GEORGE LOPEZ Self - patient is the insured 3 HNE MEDICARE SUPPLEMENT [place] [address] [place] [address] [id number] JOHNGEORGE Self - patient is the insured 1 MEDICAL (GENERAL) HISTORY Medical History History ICD Code Seasonal Allergies OA Hyperlipidemia Hx of [place] w/Stent placement-Dr Balbuena HTN Hx of Pneumonia Psoriasis Hx of Seizures-[facility] covid 15 Feb 2023, August 2023 HP:Wen Kay [phone] Surgical History Surgery Date(Month/Year) Cardiac Stent [facility] 2017
--- OUTSIDE RECORDS SUMMARY | 2025-02-28 07:39 | XMS_ITS | Patient Health Record ---
Author Organization [facility] Address [address] [place] [address] Care Team Providers Care Manager Media Name Role Phone Beata Cruz Primary Care Provi romi Unavailable PHIL DELGADO Unavailable [phone] Allergies Allergen (clinical drug ingredient) Drug/Non Drug [...] Risk Notes Problem Mononeuropathy of lower limb (692171339) Neuritis of right foot (G57.91) Active confirmed Problem Mononeuropathy of lower limb (686668798) Neuritis of left foot (G57.92) Active confirmed Plan Of Treatment Pending Test Test Name Order Date X ray : Foot, left 3v 06/28/2023 X ray : Foot, right 3v 06/28/2023 Insurance Providers Payer Name Payer Address Payer Phone Subscriber Number Group Number Insured Name Patient Relationship to Insured Coverage Start Date Coverage End Date Medicare of [place] [address] [phone] [id number] Gerry Galan Self - patient is the insured [facility] [address] [place] [address] [phone] [id number] Gerry Galan Self - patient is the insured Medical (General) History Medical History History ICD Code seasonal allergies OA hyperlipidemia history of [place] with stent placement- Dr. Balbuena hypertension history of pneumonia psoriasis history of seizures psoriasiform dermatitis pain in right foot pain in left foot coronary artery disease high cholesterol benign prostatic hyperplasia with lower urinary tract symptoms elevated liver function test chronic kidney disease + COVID 2023 COVID vaccinated Surgical History Surgery Date(Month/Year) cardiac stent- [facility] 2017 Hospitalization History Reason Date(Month/Year) cardiac stent 2017
== END 2025-02-28 08:05 | disposition home or self-care (01) ==
PROVIDERS: Visit Provider Nurse Practitioner Family
DX: B37.0 Candidal stomatitis (principal)

== ENCOUNTER → 2025-02-28 07:32 | Outpatient (BNVA) | payer MEDICARE, OTHER, SELFPAY | PROVIDERS: Visit Provider Nurse Practitioner Family | DX: B37.0 Candidal stomatitis (principal) | CPT/HCPCS: 99212 ==

== ENCOUNTER 2025-03-26 08:22 | Outpatient (AMB) | payer MEDICARE, OTHER, SELFPAY ==
[2025-03-26 08:43] VITALS: BP 110/64; PULSE 51; TEMP 36.6; O2SAT 96; BMI 27.9
--- NOTE | 2025-03-26 08:43 | AM.OFFWIN_ITS ---
Intake Vital Signs 03/26/25 08:43 Height 5 ft 7 in Weight 178 lb BMI 27.9 BP 110/64 Blood Pressure Location Lt brachial Position Sitting Pulse 51 Pulse Source Pulse Oximeter Temp 97.8 F Temp Source Oral Pulse Oximetry (%) 96 Oxygen Delivery Method Room Air Intake Visit Reasons: EP swollen left ankle Intake Note: EP complains of left ankle swilling when he hit a carb during morning walking last Tuesday.. Patient Tobacco Use Status: Former Tobacco user Allergies phenytoin (From Dilantin) Allergy (Mild, Verified 03/26/25 08:50) Rash Do you need a note to return to daycare/school/sports/work: No HPI HPI Comments History of Present Illness Details History of Present Illness - The patient is a 65-year-old male pres enting with a left ankle sprain. - The injury occurred 6 days ago when th e patient twisted his ankle stepping off a curb in the rain. - The patient has a history of a similar ankle sprain approximately 30 years ago. - The current injury resulted in swellin g, but the patient has been able to ambulate with some tenderness. - The patient has been using ice and has been advised to use an jazmin wrap for compression and support. Review of Systems - Musculoskeletal: Reports left ankle sw elling and tenderness. Denies pain in posterior ankle structures. All systems reviewed and are unremarkable except as noted in HPI Physical Exam General: Cooperative, healthy appearing, comfortable, no acute distress and well developed Orientation: Patient oriented x3 Limitations: No limitations Head: Normal to inspection Ears: Hearing grossly normal bilaterally Nose: Normal External nose present Face and sinus: Normal facial exam Eyes: Appearance normal, both eyes and all related structures Neck: Normal visual inspection and Yes full ROM Respiratory: Normal respiratory effort and able to speak in complete sentences. Skin: No rashes or lesions noted Neuro: Patient oriented x3, gait normal Extremities: Left ankle with lateral edema, no TTP to medial or lateral malleolus, no TTP navicular bones or along achilles, toes or calcaneous, no skin changes, no warmth or ecchymosis noted. [facility] Medical History (Updated 03/26/25 @ 08:59 by Jasmin Bush PA-C) Arthralgia of left hip Oral thrush Social History Patient Tobacco Use Status: Former Tobacco user Physical Exam Vital Signs: Last Vital Signs Temp 97.8 F 03/26/25 08:43 Pulse 51 03/26/25 08:43 BP 110/64 03/26/25 08:43 Pulse Ox 96 03/26/25 08:43 Oxygen Delivery Method Room Air 03/26/25 08:43 BMI result Body Mass Index 27.9 Assessment & Plan Assessment & Plan (1) Left ankle sprain: Code(s): S93.402A - Sprain of unspecified ligament of left ankle, initial encounter Qualifiers: Encounter type: initial encounter Involved ligament of ankle: anterior talofibular ligament Qualified Code(s): S93.492A - Sprain of other ligament of left ankle, initial encounter Plan: Plan Patient was informed and verbally consented to the use of an ambient scribe for clinic note documentation during this visit. Left Ankle Sprain - No indication for XR, [facility] ankle rules not met. - Applied an jazmin wrap for compression and support, educated patient on how to apply the JAZMIN wrap at home. - Use ice consistently to reduce swelling. May use ibuprofen, if able, for pain. - Rest the ankle and avoid activities that may exacerbate the injury, such as running or biking. - Follow up with primary care if symptoms do consistently not improve. Coding Level of Care Code New Pt Level 3 (95777) Diagnoses Sprain of anterior talofibular ligament of left ankle, initial encounter S93.492A Encounter type: initial encounter Involved ligament of ankle: anterior talofibular ligament
--- OUTSIDE RECORDS SUMMARY | 2025-03-26 08:57 | XMS_ITS | Clinical Summary ---
Author Organization [facility] Address [address] [place] [address] Phone Care Team Providers Care Manager Implementation Name Role Phone Daria Cruz DO Primary [...] DAY 180 tablet 3 10/13/19 25 Active amLODIPine (NORVASC) 5 mg tabletIndication s:Coronary artery disease, unspecified vessel or lesion type, unspecified whether angina present, unspecified whether three affiliated or transplanted heart TAKE 1 TABLET BY MOUTH EVERY DAY 90 tablet 1 02/15/20 25 Active carvediloL (COREG) 12.5 mg tablet TAKE 1 TABLET BY MOUTH TWICE A DAY WITH FOOD 180 tablet 1 03/22/20 25 Active carvediloL (COREG) 12.5 mg tablet TAKE 1 TABLET BY MOUTH TWICE DAILY WITH MEALS 180 tablet 1 11/09/19 25 025 Discontinued Active Problems Problem Noted [...] notify me. Aneurysm of ascending aorta ([facility] V24) 2021 Overview (06/11/2024): Last Assessment & [...] chloride 0.9% 8.7 mL injection Epilepsy ([facility] V24, [facility] V28) 12/23/2020 Overview (06/11/2024): Follows with neurology. [...] her symptoms. Chest pain 04/13/2022 08/17/2024 Convulsions ([facility] V24, [facility] V28) 08/23/2006 08/17/2024 Immunizations Immunization Administration Dates [...] preparation, normal colon exam OTHER SURGICAL HISTORY 2017 PROCEDURE: SURGICAL STENT; COMMENT: Cardiac Medical History [...] 10/10/2024 10:55 AM EDT Plan of Treatment Upcoming Encounters Date Type Department Care Team (Late st Contact Info) Description 08/21/2025 9:50 AM EDT Office Visit [facility] [address] [place] [address] [address] [place] [phone] Riley Christie MD [address] [place] [address] Dr [address] [place] [id number] Health Maintenance Due Date Last Done Comments [...] BMP Blood Test (09/09/2021) Pathologist [facility] Annual BMP Blood Test Abstracted us Historical Provider MD HEALTH MAINTENANCE Final Result * Lipid panel (08/03/2021) Pathologist [facility] LDL/HDL Ratio 2 Triglycerides 111 0 [...] to Health Maintenance Insurance MEDICARE [facility] Care Teams Manager Implementation Relationship Specialty Start Date End Date Daria Cruz DO [address] [id number] [facility] - General 04/13/22
== END 2025-03-26 09:18 | disposition home or self-care (01) ==
PROVIDERS: Visit Provider Physician Assistant
DX: S93.492A Sprain of other ligament of left ankle, initial encounter (principal)

== ENCOUNTER → 2025-03-26 08:22 | Outpatient (BNVA) | payer MEDICARE, OTHER, SELFPAY | PROVIDERS: Visit Provider Physician Assistant | DX: S93.492A Sprain of other ligament of left ankle, initial encounter (principal) | CPT/HCPCS: 99212 ==